=== PATIENT | female | born 1940 | race Caucasian/White ===

== ENCOUNTER 2024-05-07 13:51 | Outpatient (RCR) | payer MEDICARE, SELFPAY ==
[2024-05-07 14:00] VITALS: BP 184/96
[2024-05-07] MEDS: INJECTAFER 265 MG IV (14:25)
[2024-05-07 15:01] VITALS: BP 149/72
== END 2024-05-08 09:17 | disposition home or self-care (01) ==
LOC: OID 13:51
PROVIDERS: ATTENDING PHYSICIAN Physician Assistant Surgical; FAMILY PHYSICIAN Internal Medicine
DX: D50.9 Iron deficiency anemia, unspecified (principal); M16.0 Bilateral primary osteoarthritis of hip; N18.31 Chronic kidney disease, stage 3a; K51.90 Ulcerative colitis, unspecified, without complications
CPT/HCPCS: 96365; J1439

== ENCOUNTER 2024-05-11 08:38 | Inpatient (IN) | payer MEDICARE, SELFPAY ==
[2024-04-17 13:16] VITALS: BMI 33.9
[2024-04-17 15:16] LABS: % Basophils 0.5 % (0-2); % Eosinophils 4.1 % (0-6); % Immature Granulocytes 0.2 % (0-0.5); % Lymphocytes 15.8 % (20.5-51.1); % Monocytes 10.7 % (1.7-9.3); % Neutrophils 68.7 % (42.2-75.2); Absolute Eosinophils 0.2 10^3/uL (0-0.7); Absolute Lymphocytes 0.9 10^3/uL (1.2-3.4); Absolute Monocytes 0.6 10^3/uL (0.1-0.6); Hematocrit 32.4 % (37.0-47.0); Mean Corp Hgb Conc. 30.9 g/dL (33.0-37.0); Mean Corpuscular Hgb 22.8 pg (27.0-31.0); Mean Corpuscular Volume 73.8 fL (81.0-99.0); Mean Platelet Volume 11.5 fL (7.4-10.4); Nucleated Red Blood Cells % 0 %; Platelet Count 207 10^3/uL (130-400); Red Blood Cell Count 4.39 10^6/uL (4.20-5.40); Red Cell Dist. Width 17.6 % (11.5-14.5); White Blood Cell Count 5.9 10^3/uL (4.8-10.8)
[2024-04-17 15:23] LABS: ALT (SGPT) 21 U/L (0-35); AST (SGOT) 33 U/L (14-36); Albumin 4.2 g/dl (3.5-5.0); Alkaline Phosphatase 210 U/L (38-126); Blood Urea Nitrogen 17 mg/dl (7-17); Calcium 10.7 mg/dl (8.4-10.2); Carbon Dioxide 19 mmol/L (22-30); Chloride 104 mmol/L (98-107); Estimated Creatinine Clearance 40 ml/min; Glucose 93 mg/dl (70-99); Iron 27 ug/dl (37-170); Potassium 4.8 mmol/L (3.5-5.1); Sodium 137 mmol/L (135-145); Total Bilirubin 1.2 mg/dl (0.2-1.3); Total Protein 6.6 g/dl (6.3-8.2); eGFR 56.25
[2024-04-17 15:32] LABS: Percent Saturation 5 % (20-50); Total Iron Binding Capacity 492 ug/dl (265-497)
[2024-04-17 15:57] LABS: Ferritin 7.1 ng/ml (11.1-264.0)
[2024-04-17 16:28] LABS: Folate 3.3 ng/ml (2.76-20); Vitamin B12 285 pg/ml (239-931)
[2024-04-18 08:48] LABS: Glycohemoglobin (HgbA1c) 5.4 % (4.0-5.6)
[2024-05-11] VITALS (13 sets, daily range): BP systolic 107–153; BP diastolic 49–83; PULSE 71–80; O2SAT 95–100
[2024-05-11] MEDS: CELEBREX 200 MG PO (09:44)
[2024-05-11] MEDS: NORMOSOL-R/PLASMALYTE-A 1000 IV (09:44)
[2024-05-11] MEDS: TYLENOL 650 MG PO ×2 (09:44→21:28)
[2024-05-11 09:47] LABS: Hematocrit 30.8 % (37.0-47.0); Hemoglobin 9.5 g/dL (12.0-16.0); Mean Corp Hgb Conc. 30.8 g/dL (33.0-37.0); Mean Corpuscular Hgb 22.5 pg (27.0-31.0); Mean Corpuscular Volume 72.8 fL (81.0-99.0); Mean Platelet Volume 10.9 fL (7.4-10.4); Platelet Count 197 10^3/uL (130-400); Red Blood Cell Count 4.23 10^6/uL (4.20-5.40); Red Cell Dist. Width 18.5 % (11.5-14.5); White Blood Cell Count 5.7 10^3/uL (4.8-10.8)
[2024-05-11] MEDS: SUBLIMAZE 25 MCG IV ×2 (13:10→13:29)
[2024-05-11] MEDS: FERRLECIT 110 MG IV (13:53)
[2024-05-11] MEDS: ROXICODONE 5 MG PO (14:01)
--- NOTE | 2024-05-11 14:09 | W.PN.ORTHO ---
Today's Communication / Plan
-
D/c when clinically stable.
Assessment
.
Distal Motor Intact: Yes
Dressing:
Clean, dry and intact.
Assessment:
L hip OA s/p L ROSARIO w/ Dr Gray 05/11/24
DVT prophylaxis - ASA, b/l venous foot pumps
L hip 'burning' pain - add Gabapentin - monitor
HTN - + parameters - monitor BP
Chronic RODRIGUEZ - monitor O2
- IS
CKD stage 3 - minimize nephrotoxins
Ulcerative colitis, with history of total proctocolectomy with permanent�ileostomy - no Meloxicam/Celebrex
- Per pt preference, will start Colace BID w/ Senna BIDPRN
Liver fibrosis w/ chronically elevated LFTs - reduce max dose of Tylenol daily
Iron deficiency anemia � received Injectafer x1 pre-op - hgb 9.5 05/11/24
- IV iron during admission (clarified w/ pharmacy its OK w/ recent Injectafer 05/07)
- H&H in AM
L groin small open cyst - will Rx prophylactic Cefadroxil upon d/c
Celiac disease
Mixed irritable bowel syndrome.�����
Hypothyroidism
Osteoporosis
Lymphedema
Plan
.
Surgery / Date: Alexx PONCE w/ Dr Gray 05/11/24
DVT Prophylaxis: Aspirin
Activity:
Out of bed.
PT/OT
Discharge Plan: Home w/ Outpatient PT
Subjective
.
.:
Patient resting comfortably in PACU.
L hip 'burning' pain resolving upon assessment.
Denies any other new complaints.
Vital Signs and Labs
.
Vital Signs and Labs:
Lab Results
04/17/24 13:49
Temp Pulse Resp BP Pulse Ox
97.9 F 81 20 152/78 98
05/11/24 09:15 05/11/24 09:15 05/11/24 09:15 05/11/24 09:15 05/11/24 09:15
Physical Exam
-
HEENT: No pallor, cyanosis, or jaundice. Throat clear.
NECK: Supple. No JVD.
RESPIRATORY: Lungs clear to auscultation.
CVS: S1, S2 normal. RRR.�
ABDOMEN: Soft, non-tender. No distension. Obese. Ileostomy.
EXTREMITIES: Lymphedema noted. Strength equal, no calf pain with palpation/dorsiflexion. Calves soft.
SOLDERER: AOx3. No focal deficits. nursery worker grossly intact
--- NOTE | 2024-05-11 14:31 | PTCARENOTE ---
Pt arrived to [facility] from PACU s/p L THR. Pt AAOx3, NV intact. L Hip dressing C/D/I. Iron infusion started in PACU, currently infusing. Pt states mild pain at this time. Pt oriented to call pollock and room, bed locked and in lowest position.
[2024-05-11] MEDS: TYLENOL PO (15:01)
[2024-05-11] MEDS: NSS 1000 IV (15:16)
[2024-05-11] MEDS: NEURONTIN 100 MG PO ×2 (15:17→21:28)
[2024-05-11] MEDS: SYNTHROID 175 MCG PO (15:17)
[2024-05-11] MEDS: TOPROL XL 50 MG PO (15:18)
[2024-05-11] MEDS: DILAUDID 0.5 MG IV (15:21)
[2024-05-11] MEDS: ANCEF 5 IV (17:15)
[2024-05-11] MEDS: ASPIRIN 325 MG PO (17:15)
[2024-05-11] MEDS: ZOFRAN 4 MG IV (19:30)
[2024-05-11] MEDS: BACTROBAN 2% OINTMENT 1 APPLIC NASAL (21:28)
[2024-05-11] MEDS: DECADRON 4 MG PO (21:28)
[2024-05-11] MEDS: COLACE 100 MG PO (21:29)
[2024-05-11] MEDS: ROXICODONE 10 MG PO (21:49)
[2024-05-12] MEDS: ANCEF 5 IV (02:09)
[2024-05-12] MEDS: ROXICODONE 5 MG PO (02:09)
[2024-05-12 03:05] VITALS: BP 131/69
[2024-05-12] MEDS: SYNTHROID 175 MCG PO (05:04)
[2024-05-12] MEDS: TYLENOL 650 MG PO ×2 (05:04→12:08)
[2024-05-12] MEDS: ROXICODONE 2.5 MG PO (06:21)
[2024-05-12 06:43] LABS: Hematocrit 27.2 % (37.0-47.0); Hemoglobin 8.5 g/dL (12.0-16.0)
[2024-05-12 07:46] VITALS: BP 112/72
[2024-05-12] MEDS: ASPIRIN 325 MG PO (08:05)
[2024-05-12] MEDS: COLACE 100 MG PO (08:05)
[2024-05-12] MEDS: DECADRON 4 MG PO (08:05)
[2024-05-12] MEDS: BACTROBAN 2% OINTMENT 1 APPLIC NASAL (08:05)
[2024-05-12] MEDS: NEURONTIN 100 MG PO (08:05)
[2024-05-12] MEDS: TOPROL XL 50 MG PO (08:06)
[2024-05-12 09:03] VITALS: BP 114/70; BP 150/72; PULSE 102; O2SAT 94
--- NOTE | 2024-05-12 10:22 | W.PN.ORTHO ---
Today's Communication / Plan
-
Await PT recs. Pt did well w/ OT this AM.
D/c later today if remaining clinically stable.
Assessment
.
Distal Motor Intact: Yes
Dressing:
Clean, dry and intact.
Assessment:
L hip OA s/p L ROSARIO w/ Dr Grya 05/11/24
DVT prophylaxis - ASA, b/l venous foot pumps
L hip 'burning' pain - better controlled w/ addition of Gabapentin
HTN - + parameters - BPs overall stable
Chronic RODRIGUEZ - O2 stable on RA
- IS
CKD stage 3 - continue to minimize nephrotoxins
Ulcerative colitis, with history of total proctocolectomy with permanent�ileostomy - no Meloxicam/Celebrex
- Per pt preference, will start Colace BID w/ Senna BIDPRN
Liver fibrosis w/ chronically elevated LFTs - reduce max dose of Tylenol daily
Iron deficiency anemia � received Injectafer x1 pre-op - hgb 9.5 05/11/24 -> 8.5 POD 1
- IV iron during admission (clarified w/ pharmacy its OK w/ recent Injectafer 05/07)
- Will suggest PO iron daily upon d/c
- CBC outpatient w/ results to PCP for f/u mgmt
L groin small open cyst - will Rx prophylactic Cefadroxil upon d/c
Celiac disease
Mixed irritable bowel syndrome.�����
Hypothyroidism
Osteoporosis
Lymphedema
Plan
.
Surgery / Date: Alexx PONCE w/ Dr Gray 05/11/24
DVT Prophylaxis: Aspirin
Activity:
Out of bed.
PT/OT
Discharge Plan: Home w/ Outpatient PT
Subjective
.
.:
Patient resting comfortably in her chair this AM.
L hip pain well controlled w/ current pain meds.
Denies any new significant complaints.
Eager for potential d/c today.
Vital Signs and Labs
.
Vital Signs and Labs:
Lab Results
05/12/24 04:28
04/17/24 13:49
Temp Pulse Resp BP Pulse Ox
98.4 F 93 16 112/72 92
05/12/24 07:46 05/12/24 08:06 05/12/24 07:46 05/12/24 08:06 05/12/24 07:46
Physical Exam
-
HEENT: No pallor, cyanosis, or jaundice. Throat clear.
NECK: Supple. No JVD.
RESPIRATORY: Lungs clear to auscultation.
CVS: S1, S2 normal. RRR.�
ABDOMEN: Soft, non-tender. No distension. Obese.
EXTREMITIES: Strength equal, no calf pain with palpation/dorsiflexion. Calves soft.
HUMAN RESOURCES PROJECT COORDINATOR: AOx3. No focal deficits. flight surveyor grossly intact
--- NOTE | 2024-05-12 10:48 | W.DS.TRANS ---
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
-
Discharge Instructions:
Discharge Diagnosis/Procedures L hip OA s/p L ROSARIO w/ Dr Gray 05/11/24
Diet Regular
Activity As tolerated,With Walker
Driving Restrictions Not until seen by your Dr
Bathing Restrictions OK to Shower
Blood Work CBC without diff on 05/15/24, with
results to primary care for further anemia
management.
Other Services PT
Wound Care Dressing to be removed 1 week post-surgery.
Instructions:
Stand-Alone Forms: Total Hip/Knee Replacement D/C
Changes to Home Medications: Yes
Discharge Medications:
DC Medications w/original date entered in [employer]
levothyroxine 175 mcg tablet 175 mcg PO DAILY Thyroid 04/03/18
metoprolol succinate 25 mg tablet,extended release 24 hr (Toprol XL) 50 mg PO DAILY Blood pressure 04/18/21
diphenhydramine HCl 50 mg/30 mL oral liquid 50 mg PO HS PRN insomnia 05/05/24
ergocalciferol (vitamin D2) 1,250 mcg (50,000 unit) capsule (Vitamin D2) 1,250 mcg PO QWEEK Supplement 05/05/24
mupirocin 2 % topical ointment 1 applic topical BID 05/05/24
Saccharomyces boulardii 250 mg capsule (Florastor) 250 mg PO DAILY #7 caps 05/12/24
acetaminophen 325 mg tablet 650 mg (2 x 325 mg) PO Q8H #30 tabs 05/12/24
aspirin 325 mg tablet 325 mg PO DAILY #30 tabs 05/12/24
cefadroxil 500 mg capsule 500 mg PO DAILY #7 caps 05/12/24
dexamethasone 4 mg tablet 4 mg PO Q12H Anti-inflammatory #7 tabs 05/12/24
docusate sodium 100 mg capsule 100 mg PO BID #30 caps 05/12/24
ferrous sulfate 325 mg (65 mg iron) tablet 325 mg PO DAILY #30 tabs 05/12/24
gabapentin 100 mg capsule 100 mg PO TID neuropathic pain #30 caps 05/12/24
ondansetron HCl 4 mg tablet 4 mg PO Q6H PRN nausea and vomiting #30 tabs 05/12/24
oxycodone 5 mg tablet 5 - 10 mg (1 - 2 x 5 mg) PO Q6H PRN moderate-severe pain #30 tabs 05/12/24
sennosides 8.6 mg tablet (Senna Laxative) 17.2 mg (2 x 8.6 mg) PO BIDPRN PRN constipation #30 tabs 05/12/24
Home Medication Changes
Saccharomyces boulardii 250 mg capsule (Florastor) 250 mg PO DAILY #7 caps 05/12/24
acetaminophen 325 mg tablet 650 mg (2 x 325 mg) PO Q8H #30 tabs 05/12/24
aspirin 325 mg tablet 325 mg PO DAILY #30 tabs 05/12/24
cefadroxil 500 mg capsule 500 mg PO DAILY #7 caps 05/12/24
dexamethasone 4 mg tablet 4 mg PO Q12H Anti-inflammatory #7 tabs 05/12/24
docusate sodium 100 mg capsule 100 mg PO BID #30 caps 05/12/24
ferrous sulfate 325 mg (65 mg iron) tablet 325 mg PO DAILY #30 tabs 05/12/24
gabapentin 100 mg capsule 100 mg PO TID neuropathic pain #30 caps 05/12/24
ondansetron HCl 4 mg tablet 4 mg PO Q6H PRN nausea and vomiting #30 tabs 05/12/24
oxycodone 5 mg tablet 5 - 10 mg (1 - 2 x 5 mg) PO Q6H PRN moderate-severe pain #30 tabs 05/12/24
sennosides 8.6 mg tablet (Senna Laxative) 17.2 mg (2 x 8.6 mg) PO BIDPRN PRN constipation #30 tabs 05/12/24
Pending Results: No
--- NOTE | 2024-05-12 11:00 | CM ---
Met with pt at bedside
Pt reports she lives at [facility] [employer], in a [facility] apt with her ; FF set-up, elevator access, no steps to enter
Active prior to admission, independent with ADL's
DME - Rolling walker, single point cane, commode, raised toilet seat, hip kit
SNF - denies past hx
HH - has had in past - unable to recall agency
Has ride home with her
PCP - Braeden Moore
Pharm - [facility]
Has appt scheduled for outpatient PT at [facility] (sees specialist at that location for her lymphedema)
Has Rx for therapy
Discussed IMM
Plan - anticipate home with outpatient therapy
[2024-05-12 11:17] VITALS: BP 105/59; BP 105/69; PULSE 78; O2SAT 94
[2024-05-12] MEDS: ZOFRAN 4 MG IV (12:09)
== END 2024-05-12 13:35 | disposition home or self-care (01) | DRG 470 ==
LOC: 2 SOUTH 08:38
PROVIDERS: Physician Assistant; ADMITTING PHYSICIAN Specialist; FAMILY PHYSICIAN Internal Medicine; REFERRING PHYSICIAN Internal Medicine Interventional Cardiology
PROC: 0SRB0JZ Replacement of Left Hip Joint with Synthetic Substitute, Open Approach (ICD-10-PCS; 2024-05-11)
DX: M16.12 Unilateral primary osteoarthritis, left hip (principal); K51.90 Ulcerative colitis, unspecified, without complications; E03.9 Hypothyroidism, unspecified; E66.9 Obesity, unspecified; I12.9 Hypertensive chronic kidney disease with stage 1 through stage 4 chronic kidney disease, or unspecified chronic kidney disease; N18.31 Chronic kidney disease, stage 3a; M81.0 Age-related osteoporosis without current pathological fracture; D50.9 Iron deficiency anemia, unspecified; K74.00 Hepatic fibrosis, unspecified; Z68.33 Body mass index [BMI] 33.0-33.9, adult
CPT/HCPCS: 36415; 73502; 80053; 82607; 82728; 82746; 83036; 83540; 83550; 85014; 85018; 85025; 85027; 86850; 86900; 86901; 87070; 97110; 97116; 97162; 97167; 97530; 97535; C1713; C1776; J2916

== ENCOUNTER 2024-05-23 13:58 | Emergency (ER) | payer MEDICARE, SELFPAY ==
[2024-05-23 14:01] VITALS: BP 136/59
--- NOTE | 2024-05-23 14:54 | ED.GENMED ---
History of Present Illness
General
Chief Complaint: Swelling
Source: patient
Exam Limitations: none
Time Seen by Provider: 05/23/24 14:44
Nursing documentation reviewed up to this point in time: agreed with
History of Present Illness
History of Present Illness:
83-year-old female with history of HTN, lymphedema, ileostomy, CKD, hypothyroid, hidradenitis with skin grafts, anemia, impaired vision, bilateral hearing aids, L hip replacement 05/11/24 Dr. Gray, is here for left LE swelling. States had some
leg swelling post op but it has gotten much worse in past week and now includes ankle and foot.
Has been doing P/T twice weekly, since 05/12, last P/T was 2 days ago.
Spoke with Dr. Gray LITHOGRAPHIC ARTIST one week ago and was told to put compression stocking on but the one she has is 'too loose.'
States pain in hip is improving but now her ankle and foot are 5/10 pain at rest and cannot walk due to pain.
Denies Fever/chills. Denies CP, SOB.
Past History
Past History
ED Past Medical History: HTN, Hypothyroidism, Other (Lymphedema) and Other (Anemia, irritable bowel, Perforated diverticulitis, ulcerative colitis, celiac disease, hidradenitis status post radiation therapy )
ED Past Surgical History: Appendectomy, Cholecystectomy, Gynecological (Left falopian tube removed), Orthopedic (L hip replaced 05/11/24), Tonsilectomy and Other (Total Proctocolectomy with Ileostomy, numerous skin grafts)
Social History
Tobacco: Non-smoker
Alcohol: Daily (Adele 1-2 glasses)
Drug: None
Personal:
Living: with family
Employment: Not employed
Family History
Family History: Other (Noncontributory)
Review of Systems
Review of Systems
Allergies reviewed?: Yes
All Other Systems: ROS reviewed and negative except as documented in HPI and ROS
Constitutional: Denies fever or chills
Respiratory: Denies trouble breathing
Cardiac: Denies chest pain
ABD/GI: Denies abdominal pain, nausea, diarrhea, constipated or anorexia
: Denies dysuria, frequency or difficulty voiding
Musculoskeletal: Reports other (Left hip w boyd post op, improving, still oozing a little fluid at times. LLE swelling much worse than her typical lymphedema, painful.)
Skin: Reports other (redness, warmth LLE)
Phy Exam
Physical Exam
Physical Exam:
GENERAL: No acute distress. A&Ox3.
CONSTITUTIONAL: Afebrile.
EYES: clear, conjunctivae normal
ENMT: moist mucus membranes
RESPIRATORY: Regular respirations, nonlabored, lungs clear.
CARDIOVASCULAR: Regular rate and rhythm, no murmurs, no rubs.
GI: Soft, nontender, normal BS. Ileostomy patent.
MUSCULOSKELETAL: LLE with +3 edema from knee to and including toes, erythematous and warm. Foot warm, sensation intact, moves toes. Unable to palpate pulses due to swelling. Well perfused.
SKIN: Warm, dry, pink
PSYCH: Normal mood and affect. Well kept, interactive and appropriate
NEUROLOGIC: Awake, alert and oriented. No focal neurological deficits
Scores
Heart Failure Risk
Heart Failure Risk Score: Not Applicable
Course
Orders/Labs/Results
Orders:
Orders
05/23/24 15:06
US Periph Venous LOWER Ext LT Urgent
Comment:
Reason For Exam: swelling, pain 2 weeks post hip replacement
05/23/24 15:37
Complete Blood Count/With Diff Urgent
Comprehensive Metabolic Panel Urgent
05/23/24 17:12
Tramadol HCl [Ultram] 50 mg PO NOW STA
05/23/24 17:20
Tramadol HCl [Ultram] 25 mg PO NOW STA
Abnormal Lab Results
05/23/24
15:37
RBC 3.58 L 10^6/uL
(4.20-5.40)
Hgb 9.3 L g/dL
(12.0-16.0)
Hct 29.4 L %
(37.0-47.0)
MCH 26.0 L pg
(27.0-31.0)
MCHC 31.6 L g/dL
(33.0-37.0)
RDW 26.3 H %
(11.5-14.5)
Abs Immat Gran (auto) 0.1 H 10^3/uL
(0-0.05)
Absolute Lymphs (auto) 0.6 L 10^3/uL
(1.2-3.4)
Immature Gran % 0.8 H %
(0-0.5)
Neutrophils % 78.1 H %
(42.2-75.2)
Lymphocytes % 9.6 L %
(20.5-51.1)
Monocytes % 9.5 H %
(1.7-9.3)
Sodium 134 L mmol/L
(135-145)
Carbon Dioxide 18 L mmol/L
(22-30)
Alkaline Phosphatase 182 H U/L
(38-126)
Total Protein 5.8 L g/dl
(6.3-8.2)
Albumin 3.3 L g/dl
(3.5-5.0)
05/23/24 15:37
05/23/24 15:37
Vital Signs
Initial and Last Documented VS:
Initial Vital Signs
Temp Pulse Resp BP Pulse Ox
97.5 F 63 18 136/59 100
05/23/24 14:01 05/23/24 14:01 05/23/24 14:01 05/23/24 14:01 05/23/24 14:01
Last Documented Vital Signs
Temp Pulse Resp BP Pulse Ox
97.5 F 69 17 145/54 99
05/23/24 14:01 05/23/24 17:23 05/23/24 17:23 05/23/24 17:23 05/23/24 17:23
Rn Admission consulted with Physician
Rn Admission consulted with physician?: Yes
Name of Physician Consulted: Noh
MDM/Problems Addressed
Differential Diagnosis Includes:
CVT, Cellulitis, dependent edema
MDM/Problems Addressed:
83-year-old female with history of HTN, lymphedema, ileostomy, CKD, hypothyroid, hidradenitis with skin grafts, anemia, impaired vision, bilateral hearing aids, L hip replacement 05/11/24 Dr. Gray, is here for left LE swelling. States had some
leg swelling post op but it has gotten much worse in past week and now includes ankle and foot.
Has been doing P/T twice weekly, since 05/12, last P/T was 2 days ago.
Spoke with Dr. Gray LITHOGRAPHIC ARTIST one week ago and was told to put compression stocking on but the one she has is 'too loose.' Besides the compression stocking, she can use the ra wraps and 'all that stuff' at home for LE swelling.
States pain in hip is improving but now her ankle and foot are 5/10 pain at rest and cannot walk due to pain.
Denies Fever/chills. Denies CP, SOB.
4:30 p.m.
CBC: No clinically significant abnormality
CMP: No clinically significant abnormality, similar to previous
4:15 p.m.
US neg for DVT.
Most likely dependent edema on top of her chronic lymphedema. No indication of infection.
Pt requests something stronger that Tylenol for pain but not as strong as the oxycodone she was taking. She has appt in 2 days with ortho so will give small regimen of Tramadol as kidney functions are fine and no interactions with her other meds
found.
Tramadol 25 mg #7 tabs sent to her pharmacy.
and pt appreciative of the care and are comfortable going home with this plan.
*Critical Care Note
Total Time (30-74mins, 75-104mins- exclusive of procedures): Not Applicable
ED Attending Note
-
Portions of this chart may have been created with voice recognition software.� Occasional wrong word or��sound alike� substitutions may have occurred due to the inherent limitations of voice recognition software.
Discharge Plan
Departure
Patient Disposition: Home (Routine Discharge)
Date of Disposition: 05/23/24
Time of Disposition: 17:13
Patient with high blood pressure during this ER visit?: No
Condition: Fair
Discharge Problem:
Edema of left lower leg, Dependent edema
Instructions: Dependent Edema (DC), Swelling
Prescriptions:
New
tramadol 25 mg tablet
25 mg PO Q6H PRN (Reason: Pain) Qty: 7 0RF
No Action
levothyroxine 175 MCG tablet
175 mcg PO DAILY
metoprolol succinate [Toprol XL] 25 MG tablet extended release 24 hr
50 mg PO DAILY
ergocalciferol (vitamin D2) [Vitamin D2] 1,250 mcg (50,000 unit) Capsule
1,250 mcg PO QWEEK
diphenhydramine HCl 50 mg/30 mL Liquid
50 mg PO HS PRN (Reason: insomnia)
mupirocin 2 % Ointment
1 applic TOPICAL BID
aspirin 325 mg Tablet
325 mg PO DAILY Qty: 30 0RF
Rx Instructions:
Take daily x4 weeks for blood clot prevention.
docusate sodium 100 mg Capsule
100 mg PO BID Qty: 30 0RF
dexamethasone 4 mg Tablet
4 mg PO Q12H Qty: 7 0RF
Rx Instructions:
Restart night of discharge and continue every 12 hours until finished.
Take with food.
gabapentin 100 mg Capsule
100 mg PO TID Qty: 30 0RF
oxycodone 5 mg Tablet
5 - 10 mg PO Q6H PRN (Reason: moderate-severe pain) Qty: 30 0RF
Rx Instructions:
1 tab for moderate pain, 2 if severe.
Dx total joint.
sennosides [Senna Laxative] 8.6 mg Tablet
17.2 mg PO BIDPRN PRN (Reason: constipation) Qty: 30 0RF
acetaminophen 325 mg Tablet
650 mg PO Q8H Qty: 30 0RF
Rx Instructions:
DO NOT exceed >2000 mg daily.
ondansetron HCl 4 mg tablet
4 mg PO Q6H PRN (Reason: nausea and vomiting) Qty: 30 0RF
Rx Instructions:
Prescribed by surgeon's office pre-op.
cefadroxil 500 mg capsule
500 mg PO DAILY Qty: 7 0RF
Saccharomyces boulardii [Florastor] 250 mg capsule
250 mg PO DAILY Qty: 7 0RF
Rx Instructions:
Over the counter. Take while on antibiotic.
If unavailable, choose a different probiotic.
ferrous sulfate 325 mg (65 mg iron) tablet
325 mg PO DAILY Qty: 30 0RF
Rx Instructions:
Over the counter.
Referrals:
Finn Gray MD [Active] - Keep scheduled appt
Braeden Moore MD [Family Provider] -
Activity Restrictions/Additional Instructions:
As we discussed, Ultrasound shows no clots.
keep your appointment in [address] Desir's PA in 2 days.
Tylenol 1000 mg daily for mild to moderate pain and use the Tramadol as needed for worse pain
If you need something more for pain, you need to discuss this with the orthopedic PA/doctor Saturday.
Use your walker and move around as much as you comfortably can as this can help the swelling
Use your ra wraps as you have in the past for swelling
Elevate leg to level of hip as much as possible when you are resting to minimize swelling
Interventions
Interventions:
*Risk Screen - Suicide Last Done: 05/23/24 14:01
*General Assessment Last Done: 05/23/24 14:01
*Neglect/Abuse Screening Last Done: 05/23/24 14:01
*ED COVID-19 Vaccine History Last Done: 05/23/24 16:58
*Nursing Disposition Last Done: 05/23/24 18:00
ED- Cardiac Assessment Last Done: 05/23/24 14:35
ED-Musculoskeletal Assessment Last Done: 05/23/24 14:35
ED- Pulmonary Assessment Last Done: 05/23/24 14:35
ED-Skin Assessment Last Done: 05/23/24 14:35
Discharge Date and Time
Discharge Date/Time: 05/23/24 18:01
Print Language: SYRIAN
[2024-05-23 15:44] LABS: % Basophils 0.3 % (0-2); % Eosinophils 1.7 % (0-6); % Immature Granulocytes 0.8 % (0-0.5); % Lymphocytes 9.6 % (20.5-51.1); % Monocytes 9.5 % (1.7-9.3); % Neutrophils 78.1 % (42.2-75.2); Absolute Eosinophils 0.1 10^3/uL (0-0.7); Absolute Immature Granulocytes 0.1 10^3/uL (0-0.05); Absolute Lymphocytes 0.6 10^3/uL (1.2-3.4); Absolute Monocytes 0.6 10^3/uL (0.1-0.6); Hematocrit 29.4 % (37.0-47.0); Hemoglobin 9.3 g/dL (12.0-16.0); Mean Corp Hgb Conc. 31.6 g/dL (33.0-37.0); Mean Corpuscular Volume 82.1 fL (81.0-99.0); Mean Platelet Volume 10.4 fL (7.4-10.4); Nucleated Red Blood Cells % 0 %; Platelet Count 177 10^3/uL (130-400); Red Blood Cell Count 3.58 10^6/uL (4.20-5.40); Red Cell Dist. Width 26.3 % (11.5-14.5); White Blood Cell Count 6.3 10^3/uL (4.8-10.8)
[2024-05-23 16:11] LABS: ALT (SGPT) 23 U/L (0-35); AST (SGOT) 26 U/L (14-36); Albumin 3.3 g/dl (3.5-5.0); Alkaline Phosphatase 182 U/L (38-126); Blood Urea Nitrogen 13 mg/dl (7-17); Calcium 9.6 mg/dl (8.4-10.2); Carbon Dioxide 18 mmol/L (22-30); Chloride 105 mmol/L (98-107); Glucose 99 mg/dl (70-99); Sodium 134 mmol/L (135-145); Total Bilirubin 1.1 mg/dl (0.2-1.3); Total Protein 5.8 g/dl (6.3-8.2); eGFR 56.25
[2024-05-23 17:23] VITALS: BP 145/54
[2024-05-23] MEDS: ULTRAM 25 MG PO (17:27)
== END 2024-05-23 18:01 | disposition home or self-care (01) ==
LOC: EMR 13:58
PROVIDERS: Registered Nurse; EMERGENCY PHYSICIAN Emergency Medicine; FAMILY PHYSICIAN Internal Medicine
DX: R60.0 Localized edema (principal); M79.605 Pain in left leg; R26.2 Difficulty in walking, not elsewhere classified; I12.9 Hypertensive chronic kidney disease with stage 1 through stage 4 chronic kidney disease, or unspecified chronic kidney disease; N18.9 Chronic kidney disease, unspecified; E03.9 Hypothyroidism, unspecified; D63.1 Anemia in chronic kidney disease; I89.0 Lymphedema, not elsewhere classified; K90.0 Celiac disease; K58.9 Irritable bowel syndrome, unspecified; K51.90 Ulcerative colitis, unspecified, without complications; K52.9 Noninfective gastroenteritis and colitis, unspecified; M19.90 Unspecified osteoarthritis, unspecified site; M47.816 Spondylosis without myelopathy or radiculopathy, lumbar region; Z98.890 Other specified postprocedural states; Z90.49 Acquired absence of other specified parts of digestive tract; Z96.642 Presence of left artificial hip joint; Z92.3 Personal history of irradiation; Z79.82 Long term (current) use of aspirin; Z88.1 Allergy status to other antibiotic agents; Z91.018 Allergy to other foods; Z91.048 Other nonmedicinal substance allergy status
CPT/HCPCS: 99284; 80053; 85025; 93971

== ENCOUNTER → 2024-05-25 12:10 | Outpatient (REF) | payer MEDICARE, SELFPAY ==
[2024-05-25 13:15] LABS: % Basophils 0.5 % (0-2); % Eosinophils 1.2 % (0-6); % Immature Granulocytes 0.5 % (0-0.5); % Lymphocytes 8.6 % (20.5-51.1); % Monocytes 6.3 % (1.7-9.3); % Neutrophils 82.9 % (42.2-75.2); Absolute Eosinophils 0.1 10^3/uL (0-0.7); Absolute Lymphocytes 0.6 10^3/uL (1.2-3.4); Absolute Monocytes 0.5 10^3/uL (0.1-0.6); Absolute Neutrophils 6.2 10^3/uL (1.4-6.5); Hematocrit 32.1 % (37.0-47.0); Hemoglobin 9.9 g/dL (12.0-16.0); Mean Corp Hgb Conc. 30.8 g/dL (33.0-37.0); Mean Corpuscular Hgb 25.8 pg (27.0-31.0); Mean Corpuscular Volume 83.6 fL (81.0-99.0); Mean Platelet Volume 11.2 fL (7.4-10.4); Nucleated Red Blood Cells % 0 %; Platelet Count 230 10^3/uL (130-400); Red Blood Cell Count 3.84 10^6/uL (4.20-5.40); Red Cell Dist. Width 27.5 % (11.5-14.5); White Blood Cell Count 7.4 10^3/uL (4.8-10.8)
[2024-05-25 13:53] LABS: Erythrocyte Sed Rate 31 mm/hour (0-20)
[2024-05-25 14:02] LABS: Anisocytosis 1+; Hypochromasia 1+; Normal RBC Morphology No; Ovalocytes Slight; Polychromasia Slight
== END ==
LOC: REG 12:10
PROVIDERS: ATTENDING PHYSICIAN Physician Assistant Surgical; FAMILY PHYSICIAN Internal Medicine
DX: Z96.642 Presence of left artificial hip joint (principal)
CPT/HCPCS: 36415; 85025; 85652; 86140

== ENCOUNTER 2024-07-17 23:38 | Inpatient (IN) | payer MEDICARE, SELFPAY ==
[2024-07-17 18:15] VITALS: BP 143/65
[2024-07-17 18:48] LABS: % Basophils 0.5 % (0-2); % Eosinophils 1.9 % (0-6); % Immature Granulocytes 0.7 % (0-0.5); % Lymphocytes 14.2 % (20.5-51.1); % Monocytes 10.5 % (1.7-9.3); % Neutrophils 72.2 % (42.2-75.2); Absolute Eosinophils 0.2 10^3/uL (0-0.7); Absolute Immature Granulocytes 0.1 10^3/uL (0-0.05); Absolute Lymphocytes 1.2 10^3/uL (1.2-3.4); Absolute Monocytes 0.9 10^3/uL (0.1-0.6); Hematocrit 45.7 % (37.0-47.0); Mean Corp Hgb Conc. 32.8 g/dL (33.0-37.0); Mean Corpuscular Volume 88.4 fL (81.0-99.0); Mean Platelet Volume 10.6 fL (7.4-10.4); Nucleated Red Blood Cells % 0 %; Platelet Count 221 10^3/uL (130-400); Red Blood Cell Count 5.17 10^6/uL (4.20-5.40); Red Cell Dist. Width 20.6 % (11.5-14.5); White Blood Cell Count 8.3 10^3/uL (4.8-10.8)
[2024-07-17 18:50] LABS: Urine Albumin Trace (Neg - Trace); Urine Bilirubin Negative (Negative); Urine Character Clear (Clear); Urine Color Yellow; Urine Glucose Negative (Negative); Urine Ketone Negative (Negative); Urine Leukocyte 2+ (Negative); Urine Nitrite Negative (Negative); Urine Occult Blood Negative (Negative); Urine Specific Gravity 1.015 (<1.030); Urine Urobilinogen Negative (Neg - 1+)
[2024-07-17 19:00] LABS: Urine Bacteria Few (Negative); Urine Red Blood Cell 0-2 /HPF (0-2); Urine White Cell 50-60 /HPF (0-5)
[2024-07-17 19:14] LABS: ALT (SGPT) 56 U/L (0-35); AST (SGOT) 48 U/L (14-36); Albumin 4.3 g/dl (3.5-5.0); Alkaline Phosphatase 266 U/L (38-126); Blood Urea Nitrogen 42 mg/dl (7-17); Calcium 10.3 mg/dl (8.4-10.2); Carbon Dioxide 11 mmol/L (22-30); Chloride 101 mmol/L (98-107); Glucose 118 mg/dl (70-99); Potassium 4.1 mmol/L (3.5-5.1); Sodium 130 mmol/L (135-145); Total Protein 7.2 g/dl (6.3-8.2); eGFR 21.84
--- NOTE | 2024-07-17 20:49 | ED.GENMED ---
ED Provider Triage
-
Patient seen by provider in Triage?: Seen in Triage
Attestation: A medical screening examination has been initiated by a qualified medical provider. Based on the assessment performed at this time, it has been determined that an emergent medical condition may exist and the patient has been informed
that further medical evaluation and possible additional diagnostic testing may be needed.
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 presents w minimal urination in past 3 days along with increased liquid drainage in her colostomy bag over the last 1-2 weeks. Has
'pressure' suprapubic.
Bladder scan in triage: minimal urine in bladder
GENERAL: Alert , in no apparent distress
EYE: No visual abnormalities.
NECK: Trachea midline
ENT: No visible abnormalities.
LUNGS: No acute respiratory distress
NEUROLOGICAL: Alert and oriented
SKIN: Skin intact. No visible changes.
MUSCULOSKELETAL: Moving extremities normally
PSYCH: Normal and appropriate interaction.
This is a medical evaluation conducted in person to initiate diagnostic evaluation and provide initial therapeutics. Please see further documentation by the treating clinician.
History of Present Illness
General
Chief Complaint: Urinary Symptoms
Source: patient
Exam Limitations: none
Time Seen by Provider: 07/17/24 21:28
Nursing documentation reviewed up to this point in time: agreed with
History of Present Illness
History of Present Illness:
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 presents w minimal urination in past 3 days along with increased liquid drainage in her colostomy bag over the last 1-2 weeks. Has 'pressure'
suprapubic.
Bladder scan in triage: minimal urine in bladder
Past History
Past History
ED Past Medical History: HTN, Hypothyroidism, Other (Lymphedema) and Other (Anemia, irritable bowel, Perforated diverticulitis, ulcerative colitis, celiac disease, hidradenitis status post radiation therapy )
ED Past Surgical History: Appendectomy, Cholecystectomy, Gynecological (Left falopian tube removed), Orthopedic (L hip replaced 05/11/24), Tonsilectomy and Other (Total Proctocolectomy with Ileostomy, numerous skin grafts)
Social History
Tobacco: Non-smoker
Alcohol: Daily (Adele 1-2 glasses)
Drug: None
Personal:
Living: with family
Employment: Not employed
Family History
Family History: Other (Noncontributory)
Review of Systems
Review of Systems
Allergies reviewed?: Yes
All Other Systems: ROS reviewed and negative except as documented in HPI and ROS
Constitutional: Denies fever or fatigue
Respiratory: Denies trouble breathing
Cardiac: Denies chest pain
ABD/GI: Reports abdominal pain (Suprapubic 'pressure') and other (Colostomy draining well, seems to be more liquid in it than usual over the past 2 weeks); Denies nausea, vomiting, diarrhea or constipated
: Reports other (States she has not been voiding as much as usual); Denies dysuria, flank pain or incontinence
Musculoskeletal: Reports edema
Skin: Reports no symptoms
Neurological: Reports no symptoms
Phy Exam
Physical Exam
Physical Exam:
GENERAL: No acute distress. A&Ox3.
CONSTITUTIONAL: Afebrile.
EYES: clear, conjunctivae normal
ENMT: moist mucus membranes, Pharynx nl
RESPIRATORY: Regular respirations, nonlabored, lungs clear.
CARDIOVASCULAR: Regular rate and rhythm, no murmurs, no rubs.
GI: Soft, mild suprapubic tenderness, normal BS. colostomy bag intact
MUSCULOSKELETAL: Moves with ease. Well perfused. No edema, compression stockings on
SKIN: Warm, dry, pink
PSYCH: Normal mood and affect. Well kept, interactive and appropriate
NEUROLOGIC: Awake, alert and oriented. No focal neurological deficits
Course
Orders/Labs/Results
Orders:
Orders
07/17/24 18:36
CMP [Comprehensive Metabolic Panel] Urgent
Complete Blood Count/With Diff Urgent
Urinalysis Reflex To Culture Urgent
Date Specimen was Collected: 07/17/24
Time Specimen was Collected: 18:21
Urine Microscopic Reflex Cult Urgent
Urine Culture Urgent
CHANDANA Source: U
Specimen Description:
Date Specimen was Collected: 07/17/24
Time Specimen was Collected: 18:21
07/17/24 20:57
CT Abd/pel Without Iv Or Oral Urgent
Comment:
Reason For Exam: lower abd pain, pressure bladder, no urine on scan
07/17/24 21:33
0.9% Sodium Chloride 1000 ml [Nss] 1,000 ml IV BOLUS
07/17/24 22:14
Fosfomycin [Monurol] 3 gm PO ONCE ONE
07/17/24 22:58
Admit/Transfer Patient As Directed
Co-Sign Provider:
Level of Care: Inpatient admission
Assign to:: Telemetry
Physician / Group: [email or web address]
Diagnosis: UTI, SEBASTIÁN, dehydration,Hi AG Metabolic acidosis, Hyponatremia
Reason for Telemetry: Other
Other Reason for Telemetry: hypotention, electrolyes dysfunction
Date to Stop Telemetry: 07/19/24
Time to Stop Telemetry: 11:00
Reason for Hospitalization: UTI, SEBASTIÁN, dehydration, Hi AG Metabolic acidosis, Hyponatremia
Expected length of stay greater than two midnights?: Yes
ELOS- Estimated Length of Stay in days: 3
I certify the patient meets the requirements for IP care: Yes
07/17/24 23:00
Flush (0.9% Sodium Chloride) [Flush (Nss)] See Dose Instructions IV PER PROTOCOL
07/17/24 23:01
Code Status As Directed
Resuscitation Status: Full Code
12/07/24 00:26
0.9% Sodium Chloride 1000 ml [Nss] 1,000 ml IV 100 mls/hr
Acetaminophen [Tylenol] 650 mg PO Q4HPRN PRN
Bisacodyl [Dulcolax] 10 mg RECTAL [id number] PRN
Docusate W/Senna [Senokot-S] 1 tablet PO BIDPRN PRN
Polyethylene Glycol Powder [Miralax] 17 grams PO DAILYPRN PRN
07/18/24 00:26
Consult Notification Routine
Specialty to Notify: Nephrology
Date consulting provider notified: 07/18/24
Time consulting provider notified: 08:17
Notified:: Provider
NEPHROLOGY CONSULT Routine
Consulting Provider: Orin Salmon
Was physician already notified: No
Reason for consult: UTI, SEBASTIÁN, dehydration,Hi AG Metabolic acidosis, Hyponatremia
Activity As Directed
Activity Level: With Assistance
Intake/ Output As Directed
Frequency: Per unit guidelines
Vital Signs As Directed
Frequency: Per unit guidelines
Weight As Directed
Frequency: Daily
DX Deep Vein Thrombosis Video Routine
07/18/24 Breakfast
Gluten Free
At Your Request: Full Participation
Regular
At Your Request: Full Participation
Levothyroxine [Synthroid] 175 mcg PO DAILY @ 0600
07/18/24 06:37
Complete Blood Count/No Diff IN AM
Comprehensive Metabolic Panel IN AM
Ferritin IN AM
Magnesium IN AM
TSH IN AM
07/18/24 08:00
Ferrous Sulfate [Feosol] 325 mg PO DAILY
Heparin 5,000 units SC Q12
Metoprolol Xl [Toprol Xl] 50 mg PO DAILY
07/19/24 11:00
DC Protocol for Telemetry ONCE
Abnormal Lab Results
07/17/24
18:36
MCHC 32.8 L g/dL
(33.0-37.0)
RDW 20.6 H %
(11.5-14.5)
MPV 10.6 H fL
(7.4-10.4)
Abs Immat Gran (auto) 0.1 H 10^3/uL
(0-0.05)
Absolute Monos (auto) 0.9 H 10^3/uL
(0.1-0.6)
Immature Gran % 0.7 H %
(0-0.5)
Lymphocytes % 14.2 L %
(20.5-51.1)
Monocytes % 10.5 H %
(1.7-9.3)
Sodium 130 L mmol/L
(135-145)
Carbon Dioxide 11 L* mmol/L
(22-30)
BUN 42 H mg/dl
(7-17)
Creatinine 2.2 H mg/dL
(0.6-1.0)
Glucose 118 H mg/dl
(70-99)
Calcium 10.3 H mg/dl
(8.4-10.2)
AST 48 H U/L
(14-36)
ALT 56 H U/L
(0-35)
Alkaline Phosphatase 266 H U/L
(38-126)
Leukocyte Esterase Rfl 2+ A
(Negative)
Urine WBC (Reflex) 50-60 A /HPF
(0-5)
Urine Bacteria (Reflex) Few A
(Negative)
07/17/24 18:36
07/17/24 18:36
Vital Signs
Initial and Last Documented VS:
Initial Vital Signs
Temp Pulse Resp BP Pulse Ox
97.7 F 86 16 143/65 99
07/17/24 18:15 07/17/24 18:15 07/17/24 18:15 07/17/24 18:15 07/17/24 18:15
Last Documented Vital Signs
Temp Pulse Resp BP Pulse Ox
97.3 F 65 20 130/61 100
07/19/24 11:00 07/19/24 15:30 07/19/24 15:30 07/19/24 15:30 07/19/24 15:30
MDM/Problems Addressed
Differential Diagnosis Includes:
UTI, urine retention
MDM/Problems Addressed:
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 presents w minimal urination in past 3 days along with increased liquid drainage in her colostomy bag over the last 1-2 weeks. Has 'pressure'
suprapubic.
Bladder scan in triage: minimal urine in bladder
Pt is totally non toxic appearing, pleasant
CBC: No clinically significant abnormality
CMP: BUN/Creat 42/2.2 Na 130. Bicarb 11
Anion gap 18
U/A Neg nitrites, 2+ Leukocyte esterase, WBC 50-60 urine culture pending.
Suspect metabolic acidosis with reported increase in colostomy output
Acute renal insufficiency most likely from dehydration. IV fluids infusing
10:07 p.m.
Plan: Admit: metabolic acidosis, acute renal insufficiency, increased ileostomy output
CT abd/pelvis plain pending for lower abdominal pain
Multiple urine cultures in the past have no growth, will treat with one dose Monurol pending urine culture
Hospitalist notified of admission
*Critical Care Note
Total Time (30-74mins, 75-104mins- exclusive of procedures): Not Applicable
ED Attending Note
-
Portions of this chart may have been created with voice recognition software.� Occasional wrong word or��sound alike� substitutions may have occurred due to the inherent limitations of voice recognition software.
Discharge Plan
Departure
Patient Disposition: Admit
Date of Disposition: 07/17/24
Time of Disposition: 22:03
Presentation/result/management discussed w/ accepting MD/DO: Hospitalist
Condition: Fair
Discharge Problem:
Metabolic acidosis, increased anion gap (IAG)
Interventions
Interventions:
*Risk Screen - Suicide Last Done: 07/17/24 18:15
*General Assessment Last Done: 07/17/24 21:09
*Neglect/Abuse Screening Last Done: 07/17/24 18:15
*Nursing Disposition Last Done: 07/18/24 00:39
ED-Female Genitourinary Assessment Last Done: 07/17/24 21:05
Discharge Date and Time
Discharge Date/Time: 07/18/24 00:40
[2024-07-17] MEDS: NSS 1000 IV (21:55)
[2024-07-17 22:35] VITALS: BP 114/50
[2024-07-17] MEDS: MONUROL 3 GM PO (22:37)
--- NOTE | 2024-07-17 22:47 | HPS.HSE ---
Addendum entered and electronically signed by Alireza Stein MD 07/17/24 23:14:
Diet;: switch to Gluten free diet due to HX Celiac dz
Original Note:
Family Physician
-
Family Physician: Braeden Moore
Chief Complaint
-
minimal urination, low urine output, increased colotomy output
History of Present Illness
HPI
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
- increased liquid drainage in her colostomy bag over the last 1-2 weeks
- felt suprapubic pressure: Bladder scan in triage shows minimal urine in bladder
Medical History
Past Medical History
Past Medical History: Reports Other
Additional Past Medical History:
HTN
Hypothyroidism
Chr Lymphedema
Anemia
irritable bowel
Perforated diverticulitis
ulcerative colitis
celiac disease
hidradenitis status post radiation therapy
Past Surgical History: Reports Appendectomy, Bowel Resection (Total Proctocolectomy with Ileostomy, numerous skin grafts), Cholecystectomy, Gynocological (Left falopian tube removed), Orthopedic (L hip replaced 05/11/24) and Tonsilectomy
Social History
Tobacco: Non-smoker
Alcohol: Daily (Adele 1-2 glasses)
Drug: None
Personal:
Living: With Family
Family History
Family History: Not pertinent
Allergies / Home Medications
Allergies reflects when Allergies were last updated in [facility].
Home Medications with original date entered in [facility]
Allergy/Medication List:
Allergies
Allergy/AdvReac Type Severity Reaction Status Date / Time
adhesive Allergy Rash, ITCHY Verified 05/23/24 14:01
cephalexin monohydrate Allergy diarrhea Verified 05/23/24 14:01
[From Keflex]
gluten Allergy has celiac Verified 05/23/24 14:01
disease
galidium Allergy red rash Uncoded 05/11/24 09:11
Home Medications
levothyroxine 175 mcg tablet 175 mcg PO DAILY Thyroid 04/03/18
metoprolol succinate 25 mg tablet,extended release 24 hr (Toprol XL) 50 mg PO DAILY Blood pressure 04/18/21
ergocalciferol (vitamin D2) 1,250 mcg (50,000 unit) capsule (Vitamin D2) 1,250 mcg PO FR Supplement 05/05/24
ferrous sulfate 325 mg (65 mg iron) tablet 325 mg PO DAILY #30 tabs 05/12/24
diphenhydramine HCl 50 mg capsule (Sleep Aid (diphenhydramine)) 50 mg PO HSPRN PRN insomnia 07/17/24
Review of Systems
-
Constitutional: Reports No Symptoms
EENT: Reports No Symptoms
Respiratory: Reports No Symptoms
Cardiac: Reports No Symptoms
Abdomen/GI: Reports Abdominal Pain (lower )
: Reports See HPI
Musculoskeletal: Reports No Symptoms
Skin: Reports No Symptoms
Neurological: Reports No Symptoms
Endocrine: Reports No Symptoms
Hematologic/Lymphatic: Reports No Symptoms
Psych: Reports No Symptoms
Physical Exam
Vital Signs
Vital Signs
Temp Pulse Resp BP Pulse Ox
97.7 F 78 19 114/50 98
07/17/24 18:15 07/17/24 22:35 07/17/24 22:35 07/17/24 22:35 07/17/24 22:35
Physical Exam
General: No Apparent Distress and Conversant
HEENT: NormoCephalic, Anicteric and Atraumatic
Respiratory: Clear; No Wheezes, Rales or Rhonchi
Cardiac: S1/S2 and Regular Rhythm; No Murmur
Breast: Deferred by me
GI: Soft, Tender (mild suprapubic tendernes) and Ostomy (ileostomy bag intact )
Rectal: Deferred by Provider
Genito-urinary: Deferred by me
Skin: Other
Neuro: AO x 3 and No Motor Deficits
Psych: Calm
Laboratory Results
-
07/17/24 18:36
07/17/24 18:36
Laboratory Results
Total Bilirubin 1.0 mg/dl (0.2-1.3) 07/17/24 18:36
AST 48 U/L (14-36) H 07/17/24 18:36
ALT 56 U/L (0-35) H 07/17/24 18:36
Alkaline Phosphatase 266 U/L (38-126) H 07/17/24 18:36
Data Reviewed
-
Lab Data: Labs Reviewed by me
Old Records: Reviewed
Impression/Plan
-
Vital Signs
Temp Pulse Resp BP Pulse Ox
97.7 F 78 19 114/50 98
07/17/24 18:15 07/17/24 22:35 07/17/24 22:35 07/17/24 22:35 07/17/24 22:35
Data
CBC: No significant abnormality. Hgb 15. Nl MCV
CMP: BUN/Creat 42/2.2 Na 130. Bicarb 11
Anion gap 18
Ca 10.3
AST 48. ALT 56. AKP 266
U/A Neg nitrites, 2+ Leukocyte esterase, WBC 50-60 urine culture pending.
Last hospitalist admission: DATE OF ADMISSION: 04/16/2021 - DATE OF DISCHARGE: 04/20/2021
DC DXs:
1. Partial small bowel obstruction.
2. Essential hypertension with hypertensive urgency.
ASSESSMENT & PLAN
UTI presumed symptomatic: s/p one dose Monurol @ ER
Associated supra pubic discomfort/ Lower abdominal pain but afebrile. Nl WCC
Sono evidence of empty bladder
HX Multiple UCx in the past have no growth s/p one dose Monurol
- pending urine culture
- No prior POS UCx
- follow UCx till then hold off further ABx
SEBASTIÁN due to high ileostomy output plus probably UTI
Hi AG Metabolic acidosis@18 probably due to intestinal Bicarb loss due to high ileostomy output
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
Mild hypercalcemia due to dehydration
Marginal hypotension
- cont. [employer]GER Metoprolol succinate but to hold if SBP < 110
- s/p NS 1 L at ER : then cont IV NS 100/H
- f/u Cr, HCO3 , Na, Ca in AM
- Renal consult
Mild transaminitis likely due to shock liver due to dehydration and hypotesion
- IV NS
- observe LFTs
Essential HTN
- on [employer] MA[employer]GER Metoprolol sux hold if SBP < 110
Chronic condition:
HX Microcytic anemia due to Fe def: on Ferrous sulfate daily- to be cont
HX Celiac disease.
HX Hypothyroidism on LT 175mcg daily - to be cont
Obesity due to excess calories with a BMI of 37.6.
DVT Px: SQH
Code: Full
IP TLM
[2024-07-18] VITALS (8 sets, daily range): BP systolic 89–144; BP diastolic 55–64; BMI 29.4
[2024-07-18] MEDS: FLUSH (NSS) 1 FLUSH IV (00:19)
[2024-07-18] MEDS: NSS 1000 IV (01:31)
--- NOTE | 2024-07-18 01:40 | PTCARENOTE ---
Received pt from ED via stretcher. Patient transferred to standing scale with minimal assistance. All orders reviewed and acknowledged. Patient updated with Plan of care along with orientation to room. Call pollock within reach. Bed locked and low to
floor.
[2024-07-18] MEDS: SYNTHROID 175 MCG PO (05:24)
[2024-07-18 07:05] LABS: Hematocrit 38.8 % (37.0-47.0); Hemoglobin 13.2 g/dL (12.0-16.0); Mean Corpuscular Hgb 30.3 pg (27.0-31.0); Platelet Count 148 10^3/uL (130-400); Red Blood Cell Count 4.36 10^6/uL (4.20-5.40); Red Cell Dist. Width 20.3 % (11.5-14.5); White Blood Cell Count 5.6 10^3/uL (4.8-10.8)
[2024-07-18 08:03] LABS: TSH 1.88 uIU/ml (0.47-4.68)
[2024-07-18 08:07] LABS: Ferritin 38.3 ng/ml (11.1-264.0)
[2024-07-18 08:23] LABS: ALT (SGPT) 45 U/L (0-35); AST (SGOT) 42 U/L (14-36); Albumin 3.3 g/dl (3.5-5.0); Alkaline Phosphatase 201 U/L (38-126); Blood Urea Nitrogen 40 mg/dl (7-17); Calcium 9.6 mg/dl (8.4-10.2); Carbon Dioxide 12 mmol/L (22-30); Chloride 107 mmol/L (98-107); Estimated Creatinine Clearance 19 ml/min; Glucose 94 mg/dl (70-99); Magnesium 1.6 mg/dl (1.6-2.3); Potassium 3.8 mmol/L (3.5-5.1); Sodium 133 mmol/L (135-145); Total Bilirubin 0.9 mg/dl (0.2-1.3); Total Protein 5.7 g/dl (6.3-8.2); eGFR 24.48
--- NOTE | 2024-07-18 09:33 | W.PN.HOSP.TC ---
Today's Communication/Plan
-
IV bicarbonate infusion. IV antibiotics. Nephrology consult.
Assessment / Plan
Assessment / Plan
Physical Exam
General: No Apparent Distress and Conversant
HEENT: NormoCephalic, Anicteric and Atraumatic
Respiratory: Clear; No Wheezes, Rales or Rhonchi
Cardiac: S1/S2 and Regular Rhythm; No Murmur
Breast: Deferred by me
GI: Soft, Tender (mild suprapubic tendernes) and Ostomy (ileostomy bag intact )
Rectal: Deferred by Provider
Genito-urinary: Deferred by me
Skin: Other
Neuro: AO x 3 and No Motor Deficits
Psych: Calm
A/P:
UTI presumed symptomatic: s/p one dose Monurol @ ER. Concerns for sepsis.
Associated supra pubic discomfort/ Lower abdominal pain but afebrile. Nl WCC
Sono evidence of empty bladder
HX Multiple UCx in the past have no growth s/p one dose Monurol
- pending urine culture
- No prior POS UCx
- follow UCx
-Start empirically on IV ceftriaxone 1 g daily and metronidazole 500 mg IV every 8 hours.
-Check C. difficile and stool cultures and norovirus
SEBASTIÁN due to high ileostomy output plus probably UTI
Hi AG Metabolic acidosis@18 probably due to intestinal Bicarb loss due to high ileostomy output
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
Mild hypercalcemia due to dehydration
Marginal hypotension
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
- s/p NS 1 L at ER : then cont IV NS 100/H
- f/u Cr, HCO3 , Na, Ca in AM
- Renal consult pending. Stat bicarbonate bolus now and start IV Bicarbonate infusion this morning.
Mild transaminitis likely due to shock liver due to dehydration and hypotesion
- IV NS
- observe LFTs
Essential HTN
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
Chronic condition:
HX Microcytic anemia due to Fe def: on Ferrous sulfate daily- to be cont
HX Celiac disease.
HX Hypothyroidism on LT 175mcg daily - to be cont
Obesity due to excess calories with a BMI of 37.6.
DVT Px: SQH
Code: Full
Total time spent on today's encounter was 52 minutes which included time spent in counseling the patient/family regarding diagnosis and treatment plan as listed above, goals of care, and symptom management. Case was discussed with nursing staff,
specialists, and care coordinators/case management. All labs and imaging personally reviewed by me. Remainder the time spent in detailed review of previous records, lab data, imaging, and other medical provider documentation.
Anticipated Discharge: > 48 hours
Subjective/Interval History
-
Date of Service: July 18, 2024
Patient complains of abdominal pain intermittent in nature and also dysuria and urgency. She describes as 'feeling pressure on the bladder'. Hypotensive earlier. Acidemia.
Objective Data
-
Labs:
Laboratory Results
07/18/24
06:37
WBC 5.6
Hgb 13.2
Hct 38.8
Plt Count 148 D
Sodium 133 L
Potassium 3.8
Chloride 107
Carbon Dioxide 12 L*
BUN 40 H
Creatinine 2.0 H
Glucose 94
Calcium 9.6
Total Bilirubin 0.9
AST 42 H
ALT 45 H
Alkaline Phosphatase 201 H
Vital Signs:
Vital Signs
Temp Pulse Resp BP Pulse Ox
97.4 F 74 20 114/64 98
07/18/24 07:30 07/18/24 07:30 07/18/24 07:30 07/18/24 07:30 07/18/24 07:30
I&O
07/17/24 07/18/24 07/19/24
06:59 06:59 06:59
Intake Total 400 / 400
Output Total 475 / 475
Balance 400 / 400 -475 / -475
[2024-07-18] MEDS: SODIUM BICARBONATE 50 MEQ IV (09:36)
[2024-07-18] MEDS: SODIUM BICARBONATE 1075 MEQ IV ×2 (09:36→19:44)
[2024-07-18] MEDS: TOPROL XL 50 MG PO (09:41)
[2024-07-18] MEDS: FEOSOL 325 MG PO (09:41)
--- NOTE | 2024-07-18 10:14 | CM ---
patient admitted from home. She lives in independent living at [facility]. she is on 4th floor with elevator access.
She is very active in her community. She has rolling walker, cane, commode and hip kit. She was going to outpatient PT s/p hip replacement with Dr. Gray.
PCp Dr. sallie Moore
Pharmacy: [facility]
PLAN: home no needs
[2024-07-18] MEDS: STERILE WATER FOR INJECTION 10 ML IV (14:31)
[2024-07-18] MEDS: TUMS CHEWABLE TABLET 200 MG PO (14:31)
[2024-07-18] MEDS: ROCEPHIN 1000 MG IV (14:31)
[2024-07-18 14:39] LABS: Lactic Acid 1.2 mmol/L (0.7-2.0)
[2024-07-18] MEDS: FLAGYL 500 MG 100 IV (15:51)
--- NOTE | 2024-07-18 17:03 | W.CON.NEPH ---
Consultation
-
Date/Time Consultation Requested: 07/18/24 0026
Date/Time Consultation Performed: 07/18/24 1715
Requesting Provider: harrison Gómez
Performing Provider: Orin Moreno
Reason for Consultation: SEBASTIÁN and met acidosis
Medical History
-
Chief Complaint: Decreased UOP, increased ostomy out put
History of Present Illness:
83F recent HX THR 05/11, [facility], Ulcerative colitis history of total proctocolectomy with permanent�ileostomy 25yrs ago, iron def anemia not on po iron, HTN on metoprolol, hypothyroidism on levothyroxine, Lymphedema who noticed increased GI out
put for last 2-3weeks and noted decreased UOP for last 3days Hence presented to the ER yesterday. She reports having a hip replacement in April since that time she had used antibiotics intermittently most recently for UTI cephalosporins last
week. to pursue trying to increase her fluid intake with ongoing GI losses. No change in her appetite. No abdominal pain. 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 On arrival her cr was at 2.2, bicarb was at 11, sodium 130. She received 1lit
NS bolus and continued on NS, Repeat labs this am cr still at 2, bicarb 12, sodium 133. Nephrology consulted for further eval. she reports having chills prior to the admission but no fevers. No chest pain or shortness of breath or coughing.
Past Medical History
HTN
Hypothyroidism
Chr Lymphedema
Anemia
irritable bowel
Perforated diverticulitis
ulcerative colitis
celiac disease
hidradenitis status post radiation therapy
Past Surgical History: Other (Appendectomy, Bowel Resection (Total Proctocolectomy with Ileostomy, numerous skin grafts), Cholecystectomy, Gynocological (Left falopian tube removed), Orthopedic (L hip replaced 05/11/24) and Tonsilectomy)
Social History
Tobacco: Non-Smoker
Alcohol: Daily (arnold 1-2 glasses)
Drug: None
Personal:
Living: With Family
Family History
The brother with kidney disease, diabetes
Son with diabetes
Allergies / Home Medications
Allergy/AdvReac Type Severity Reaction Status Date / Time
adhesive Allergy Rash, ITCHY Verified 05/23/24 14:01
cephalexin monohydrate Allergy diarrhea Verified 05/23/24 14:01
[From Keflex]
gluten Allergy has celiac Verified 05/23/24 14:01
disease
galidium Allergy red rash Uncoded 05/11/24 09:11
�Medication �Instructions �Recorded �Confirmed �Type
levothyroxine 175 mcg tablet 175 mcg PO DAILY Thyroid 04/03/18 07/17/24 History
metoprolol succinate 25 mg 50 mg PO DAILY Blood pressure 04/18/21 07/17/24 History
tablet,extended release 24 hr
(Toprol XL)
ergocalciferol (vitamin D2) 1,250 1,250 mcg PO FR Supplement 05/05/24 07/17/24 History
mcg (50,000 unit) capsule (Vitamin
D2)
ferrous sulfate 325 mg (65 mg 325 mg PO DAILY #30 tabs 05/12/24 07/17/24 Rx
iron) tablet
diphenhydramine HCl 50 mg capsule 50 mg PO HSPRN PRN insomnia 07/17/24 07/17/24 History
(Sleep Aid (diphenhydramine))
Review of Systems
-
All complete 12 point ROS have been inquired and found negative other than stated in HPI
Physical Exam
Vital Signs
Vital Signs
Temp Pulse Resp BP Pulse Ox
98.1 F 79 20 89/61 96
07/18/24 15:55 07/18/24 15:55 07/18/24 15:55 07/18/24 15:55 07/18/24 15:55
Lab Results
WBC 5.6 10^3/uL (4.8-10.8) 07/18/24 06:37
RBC 4.36 10^6/uL (4.20-5.40) 07/18/24 06:37
Hgb 13.2 g/dL (12.0-16.0) 07/18/24 06:37
Hct 38.8 % (37.0-47.0) 07/18/24 06:37
Plt Count 148 10^3/uL (130-400) D 07/18/24 06:37
Sodium 133 mmol/L (135-145) L 07/18/24 06:37
Potassium 3.8 mmol/L (3.5-5.1) 07/18/24 06:37
Chloride 107 mmol/L (98-107) 07/18/24 06:37
Carbon Dioxide 12 mmol/L (22-30) L* 07/18/24 06:37
BUN 40 mg/dl (7-17) H 07/18/24 06:37
Creatinine 2.0 mg/dL (0.6-1.0) H 07/18/24 06:37
eGFR 24.48 07/18/24 06:37
Glucose 94 mg/dl (70-99) 07/18/24 06:37
Calcium 9.6 mg/dl (8.4-10.2) 07/18/24 06:37
Albumin 3.3 g/dl (3.5-5.0) L 07/18/24 06:37
CT abd with out IV :
IMPRESSION:
Prior surgical changes likely colectomy with right lower quadrant ileostomy and accompanying unremarkable parastomal hernia containing small bowel. Additional lower anterior abdominal wall hernia containing unremarkable small bowel.
Some fluid-filled loops of small bowel with some nonspecific air-fluid levels within the true pelvis which may reflect ileus or enteritis. No free air.
Small hiatal hernia.
Evaluation of the soft tissues of the true pelvis significantly obscured by beam hardening artifact from left hip arthroplasty.
Prior cholecystectomy, stable.
Physical Exam
General: Awake, Alert, Oriented, AOx3, No Distress and Nontoxic
HEENT: EOMI, Anicteric, Conjunctivae Clear, Facial Symmetry and No JVD
Respiratory: Clear, Normal Excursion and Nonlabored Respirations
Cardiac: S1/S2 and Regular Rate/Rhythm
Breast: Deferred by me
Abdomen: Soft, Nontender and Nondistended
Musculoskeletal: No Cyanosis and No Edema
Skin: No Rash
Neuro: Nonfocal/Grossly Intact
Psych: Mood/afflect pleasant, Insight/judgement good and Appropriate
Data Reviewed
-
Radiology: Report Reviewed by me and Discussed with Patient
Labs: Labs Reviewed by me, Discussed with Nurse and Discussed with Patient
Assessment/Plan
-
IMP:
UTI presumed symptomatic
SEBASTIÁN due to high ileostomy -baseline cr 1
AG Metabolic acidosis
Acute on chr Hyponatremia
Mild hypercalcemia
Marginal hypotension
Mild transaminitis likely due to shock liver
Essential HTN
Ulcerative colitis with history of total proctocolectomy with permanent ileostomy.
HX Microcytic anemia due to Fe def
HX Celiac disease.
HX Hypothyroidism
Obesity due to excess calories with a BMI of 37.6.
Liver fibrosis with chronically elevated transaminases
Plan;
A/w increased GI out put form ileostomy and UTI symp
recently took abx intermittently for different reasons, mainly UTI
SEBASTIÁN-likely prerenal, UA UTI sample
Would cont IVF and repeat labs
mixed met acidosis-if worsening change to [id number]
monitor UOP, no hydro on CT
BP are soft, holding parameters for BB
abx per primary and await for cxs
d/w pt and nursing
[2024-07-19 01:00] LABS: Blood Urea Nitrogen 42 mg/dl (7-17); Calcium 9.2 mg/dl (8.4-10.2); Carbon Dioxide 16 mmol/L (22-30); Chloride 109 mmol/L (98-107); Estimated Creatinine Clearance 23 ml/min; Glucose 103 mg/dl (70-99); Potassium 3.5 mmol/L (3.5-5.1); Sodium 137 mmol/L (135-145); eGFR 29.76
[2024-07-19] MEDS: FLAGYL 500 MG 100 IV ×2 (01:03→09:37)
[2024-07-19 03:19] VITALS: BP 119/60
[2024-07-19] MEDS: SYNTHROID 175 MCG PO (04:45)
[2024-07-19] MEDS: SODIUM BICARBONATE 1075 MEQ IV (05:59)
[2024-07-19 06:00] VITALS: BMI 29.6
[2024-07-19 07:34] LABS: % Basophils 0.6 % (0-2); % Eosinophils 4.5 % (0-6); % Immature Granulocytes 0.4 % (0-0.5); % Lymphocytes 22.2 % (20.5-51.1); % Monocytes 11.2 % (1.7-9.3); % Neutrophils 61.1 % (42.2-75.2); Absolute Eosinophils 0.2 10^3/uL (0-0.7); Absolute Monocytes 0.5 10^3/uL (0.1-0.6); Absolute Neutrophils 2.8 10^3/uL (1.4-6.5); Hematocrit 37.4 % (37.0-47.0); Hemoglobin 13.2 g/dL (12.0-16.0); Mean Corp Hgb Conc. 35.3 g/dL (33.0-37.0); Mean Corpuscular Hgb 30.3 pg (27.0-31.0); Mean Corpuscular Volume 85.8 fL (81.0-99.0); Mean Platelet Volume 10.7 fL (7.4-10.4); Nucleated Red Blood Cells % 0 %; Platelet Count 146 10^3/uL (130-400); Red Blood Cell Count 4.36 10^6/uL (4.20-5.40); Red Cell Dist. Width 20.4 % (11.5-14.5); White Blood Cell Count 4.6 10^3/uL (4.8-10.8)
[2024-07-19 07:55] VITALS: BP 132/68
[2024-07-19 08:05] LABS: ALT (SGPT) 35 U/L (0-35); AST (SGOT) 34 U/L (14-36); Albumin 3.2 g/dl (3.5-5.0); Alkaline Phosphatase 194 U/L (38-126); Blood Urea Nitrogen 38 mg/dl (7-17); Calcium 9.1 mg/dl (8.4-10.2); Carbon Dioxide 18 mmol/L (22-30); Chloride 108 mmol/L (98-107); Estimated Creatinine Clearance 28 ml/min; Glucose 93 mg/dl (70-99); Potassium 3.2 mmol/L (3.5-5.1); Sodium 138 mmol/L (135-145); Total Bilirubin 0.6 mg/dl (0.2-1.3); Total Protein 5.7 g/dl (6.3-8.2); eGFR 37.56
[2024-07-19] MEDS: TOPROL XL 50 MG PO (09:42)
[2024-07-19] MEDS: FEOSOL 325 MG PO ×2 (09:42)
--- NOTE | 2024-07-19 10:21 | W.PN.HOSP.TC ---
Today's Communication/Plan
-
IV antibiotics. PT OT eval
Assessment / Plan
Assessment / Plan
Physical Exam
General: No Apparent Distress and Conversant
HEENT: NormoCephalic, Anicteric and Atraumatic
Respiratory: Clear; No Wheezes, Rales or Rhonchi
Cardiac: S1/S2 and Regular Rhythm; No Murmur
Breast: Deferred by me
GI: Soft, Tender (mild suprapubic tendernes) and Ostomy (ileostomy bag intact )
Rectal: Deferred by Provider
Genito-urinary: Deferred by me
Skin: Other
Neuro: AO x 3 and No Motor Deficits
Psych: Calm
A/P:
Sepsis due to UTI:
Continue IV ceftriaxone and would treat to at least complete 5 days.
Add some Pyridium as needed
Urine culture with more than 75K colonies and some contamination but also she has received antibiotics prior and she has indeed urinary symptoms.
Blood cultures no growth
Updated at bedside today
PT OT eval
SEBASTIÁN:
Due to GI losses
Stop IV fluids
Nephrology consult appreciated
Creatinine 2.2--> down to 1.4 today
Diarrhea:
C. difficile negative
Norovirus negative
Salmonella, Campylobacter and Shiga toxin pending.
Hypotension:
Improved
On IVF yesterday
Anion gap metabolic acidosis:
On IV bicarb drip on 07/18
Off today
Bicarb 11--> up to 18 today
Hyponatremia:
Back up to normal today
Continue to monitor
Hypokalemia:
Replete and trend
History of ulcerative colitis with history of total proctocolectomy end ileostomy:
Ostomy nurse follow-up in am
Hypertension:
Continue her beta-blockers
Hypothyroidism:
Continue levothyroxine 175 mcg p.o. daily
DVT prophylaxis:
Heparin SQ
CODE STATUS:
Full code
Total time spent on today's encounter was 52 minutes which included time spent in counseling the patient/family regarding diagnosis and treatment plan as listed above, goals of care, and symptom management. Case was discussed with nursing staff,
specialists, and care coordinators/case management. All labs and imaging personally reviewed by me. Remainder the time spent in detailed review of previous records, lab data, imaging, and other medical provider documentation.
Anticipated Discharge: 24 - 48 hours
Subjective/Interval History
-
Date of Service: July 19, 2024
Patient feels better today. Still having some dysuria. Blood pressure better today. Afebrile.
Objective Data
-
Labs:
Laboratory Results
07/19/24 07/19/24
00:38 07:26
WBC 4.6 L
Hgb 13.2
Hct 37.4
Plt Count 146
Sodium 137 138
Potassium 3.5 3.2 L
Chloride 109 H 108 H
Carbon Dioxide 16 L 18 L
BUN 42 H 38 H
Creatinine 1.7 H 1.4 H
Glucose 103 H 93
Calcium 9.2 9.1
Total Bilirubin 0.6
AST 34
ALT 35
Alkaline Phosphatase 194 H
Vital Signs:
Vital Signs
Temp Pulse Resp BP Pulse Ox
97.3 F 76 16 132/68 97
07/19/24 07:55 07/19/24 07:55 07/19/24 07:55 07/19/24 09:42 07/19/24 07:55
I&O
07/18/24 07/19/24 07/20/24
06:59 06:59 06:59
Intake Total 400 / 400 3460 / 3460
Output Total 1225 / 1225 900 / 900
Balance 400 / 400 2235 / 2235 -900 / 900
[2024-07-19 11:00] VITALS: BP 130/58
[2024-07-19] MEDS: ROCEPHIN 1000 MG IV (13:12)
[2024-07-19] MEDS: STERILE WATER FOR INJECTION 10 ML IV (13:12)
[2024-07-19] MEDS: Pyridium 100 MG PO (13:32)
[2024-07-19] MEDS: KCL 40 MEQ PO (13:32)
[2024-07-19 15:30] VITALS: BP 130/61
--- NOTE | 2024-07-19 15:33 | W.PN.NEPH.PH ---
Today's Communication / Plan
-
labs later today, prn IVF
start po bicarb
Assessment/Plan
-
IMP:
UTI presumed symptomatic
SEBASTIÁN due to high ileostomy -baseline cr 1
AG Metabolic acidosis
Acute on chr Hyponatremia
Mild hypercalcemia
Marginal hypotension
Mild transaminitis likely due to shock liver
Essential HTN
Ulcerative colitis with history of total proctocolectomy with permanent ileostomy.
HX Microcytic anemia due to Fe def
HX Celiac disease.
HX Hypothyroidism
Obesity due to excess calories with a BMI of 37.6.
Liver fibrosis with chronically elevated transaminases
Plan;
A/w increased GI out put form ileostomy and UTI symp
recently took abx intermittently for different reasons, mainly UTI
SEBASTIÁN-likely prerenal, UA UTI sample
cr improving to 1.4
ok to resume iVF if needed
mixed met acidosis-improving , will add po bicarb
monitor UOP, no hydro on CT
BP better, holding parameters for BB
abx per primary and await for cxs
replace k
d/w pt
-
-
Date of Service: July 19, 2024
CC / HPI / ROS
-
Chief Complaint:
SEBASTIÁN, met acidosis
History of Present Illness:
cr better at 1.4, k low 3.2
improving met acidosis, bicarb 18
BP stable
U cx mixed alex
Review of Systems:
increased out put still
no abd pian
dysuria
no n/v
Labs
-
Labs:
WBC 4.6 10^3/uL (4.8-10.8) L 07/19/24 07:26
RBC 4.36 10^6/uL (4.20-5.40) 07/19/24 07:26
Hgb 13.2 g/dL (12.0-16.0) 07/19/24 07:26
Hct 37.4 % (37.0-47.0) 07/19/24 07:26
Plt Count 146 10^3/uL (130-400) 07/19/24 07:26
Sodium 138 mmol/L (135-145) 07/19/24 07:26
Potassium 3.2 mmol/L (3.5-5.1) L 07/19/24 07:26
Chloride 108 mmol/L (98-107) H 07/19/24 07:26
Carbon Dioxide 18 mmol/L (22-30) L 07/19/24 07:26
BUN 38 mg/dl (7-17) H 07/19/24 07:26
Creatinine 1.4 mg/dL (0.6-1.0) H 07/19/24 07:26
eGFR 37.56 07/19/24 07:26
Glucose 93 mg/dl (70-99) 07/19/24 07:26
Calcium 9.1 mg/dl (8.4-10.2) 07/19/24 07:26
Albumin 3.2 g/dl (3.5-5.0) L 07/19/24 07:26
Physical Exam
-
Vital Signs:
Vital Signs
Temp Pulse Resp BP Pulse Ox
97.3 F 64 20 130/58 97
07/19/24 11:00 07/19/24 11:00 07/19/24 11:00 07/19/24 11:00 07/19/24 11:00
Cardiovascular:: Regular rate and rhythm
Respiratory:: Bilateral: CTA
Lung Excursion:: Normal
Abdomen:: Nontender and Soft
Extremity Edema:: None: Bilateral:
Cuevas Catheter: No
[2024-07-19] MEDS: SODIUM BICARBONATE 650 MG PO ×2 (16:19→21:14)
[2024-07-19 23:33] VITALS: BP 125/62
[2024-07-20] MEDS: SYNTHROID 175 MCG PO (05:24)
[2024-07-20 06:00] VITALS: BMI 29.8
[2024-07-20 06:48] VITALS: BP 126/65
[2024-07-20 08:22] LABS: % Basophils 0.8 % (0-2); % Eosinophils 4.8 % (0-6); % Immature Granulocytes 0.4 % (0-0.5); % Lymphocytes 18.2 % (20.5-51.1); % Monocytes 8.9 % (1.7-9.3); % Neutrophils 66.9 % (42.2-75.2); Absolute Eosinophils 0.3 10^3/uL (0-0.7); Absolute Lymphocytes 0.9 10^3/uL (1.2-3.4); Absolute Monocytes 0.5 10^3/uL (0.1-0.6); Absolute Neutrophils 3.5 10^3/uL (1.4-6.5); Hemoglobin 13.2 g/dL (12.0-16.0); Mean Corp Hgb Conc. 34.7 g/dL (33.0-37.0); Mean Corpuscular Hgb 30.6 pg (27.0-31.0); Mean Platelet Volume 11.1 fL (7.4-10.4); Nucleated Red Blood Cells % 0 %; Platelet Count 148 10^3/uL (130-400); Red Blood Cell Count 4.32 10^6/uL (4.20-5.40); Red Cell Dist. Width 20.9 % (11.5-14.5); White Blood Cell Count 5.2 10^3/uL (4.8-10.8)
[2024-07-20 08:39] LABS: Blood Urea Nitrogen 23 mg/dl (7-17); Calcium 9.6 mg/dl (8.4-10.2); Carbon Dioxide 17 mmol/L (22-30); Chloride 109 mmol/L (98-107); Estimated Creatinine Clearance 36 ml/min; Glucose 114 mg/dl (70-99); Potassium 3.5 mmol/L (3.5-5.1); Sodium 138 mmol/L (135-145); eGFR 50.17
[2024-07-20] MEDS: SODIUM BICARBONATE 650 MG PO ×3 (09:06→20:59)
[2024-07-20] MEDS: FEOSOL 325 MG PO (09:07)
[2024-07-20] MEDS: TOPROL XL 50 MG PO (09:07)
--- NOTE | 2024-07-20 09:39 | PTCARENOTE ---
WO RN assist: Patient consulted for Ileostomy. Assessed and spoke with patient. No concerns or questions at this time. Ileostomy site CDI with no leakage with patient own pouch. Supplies offered to patient, denied as she stated she carries her
own supplies. WO RN to sign off at this time.
--- NOTE | 2024-07-20 09:40 | WOUNDNOTE ---
WOYu RN assist Mac Greenwood confirmed with HESHAM RODRIGUEZ consult not needed; see Mac Greenwood's note.
[2024-07-20 10:06] VITALS: BP 130/67; PULSE 72; O2SAT 98
[2024-07-20 10:07] VITALS: BP 130/67; PULSE 74; O2SAT 97
--- NOTE | 2024-07-20 11:53 | W.PN.NEPH.PH ---
Today's Communication / Plan
-
Observe on sodium bicarb
Follow lab work while inpatient
Assessment/Plan
-
IMP:
UTI presumed symptomatic
SEBASTIÁN due to high ileostomy -baseline cr 1
AG Metabolic acidosis
Acute on chr Hyponatremia
Mild hypercalcemia
Marginal hypotension
Mild transaminitis likely due to shock liver
Essential HTN
Ulcerative colitis with history of total proctocolectomy with permanent ileostomy.
HX Microcytic anemia due to Fe def
HX Celiac disease.
HX Hypothyroidism
Obesity due to excess calories with a BMI of 37.6.
Liver fibrosis with chronically elevated transaminases
Plan;
A/w increased GI out put form ileostomy and UTI symp
recently took abx intermittently for different reasons, mainly UTI
SEBASTIÁN-likely prerenal, UA UTI sample
cr improving to 1.1
mixed met acidosis-persists at 17, will add po bicarb
monitor UOP, no hydro on CT
BP better, holding parameters for BB
abx per primary and await for cxs
Patient wants to leave, states ostomy output is less, eating full diet
d/w pt
-
-
Date of Service: July 20, 2024
CC / HPI / ROS
-
Chief Complaint:
SEBASTIÁN, met acidosis
History of Present Illness:
cr better at 1.1, k low 3.5
Persistent met acidosis, bicarb 17
BP stable
U cx mixed alex
Review of Systems:
increased out put still
no abd pian
dysuria
no n/v
Weight up
Labs
-
Labs:
WBC 5.2 10^3/uL (4.8-10.8) 07/20/24 08:02
RBC 4.32 10^6/uL (4.20-5.40) 07/20/24 08:02
Hgb 13.2 g/dL (12.0-16.0) 07/20/24 08:02
Hct 38.0 % (37.0-47.0) 07/20/24 08:02
Plt Count 148 10^3/uL (130-400) 07/20/24 08:02
Sodium 138 mmol/L (135-145) 07/20/24 08:02
Potassium 3.5 mmol/L (3.5-5.1) 07/20/24 08:02
Chloride 109 mmol/L (98-107) H 07/20/24 08:02
Carbon Dioxide 17 mmol/L (22-30) L 07/20/24 08:02
BUN 23 mg/dl (7-17) H 07/20/24 08:02
Creatinine 1.1 mg/dL (0.6-1.0) H 07/20/24 08:02
eGFR 50.17 07/20/24 08:02
Glucose 114 mg/dl (70-99) H 07/20/24 08:02
Calcium 9.6 mg/dl (8.4-10.2) 07/20/24 08:02
Albumin 3.2 g/dl (3.5-5.0) L 07/19/24 07:26
Physical Exam
-
Vital Signs:
Vital Signs
Temp Pulse Resp BP Pulse Ox
97.7 F 74 20 126/65 98
07/20/24 06:48 07/20/24 09:07 07/20/24 06:48 07/20/24 09:07 07/20/24 06:48
Cardiovascular:: Regular rate and rhythm
Respiratory:: Bilateral: CTA
Lung Excursion:: Normal
Abdomen:: Nontender and Soft
Extremity Edema:: None: Bilateral:
Cuevas Catheter: No
--- NOTE | 2024-07-20 14:28 | CM ---
Chart reviewed. [facility]
Plan of care ongoing
Nephrology following
Current w/ abx
Per PT/OT, no skilled needs at this time
Plan: Home; no anticipated needs when medically stable
[2024-07-20] MEDS: ROCEPHIN 1000 MG IV (15:08)
[2024-07-20] MEDS: STERILE WATER FOR INJECTION 10 ML IV (15:09)
[2024-07-20 15:28] VITALS: BP 128/55
--- NOTE | 2024-07-20 19:37 | W.PN.HOSP.TC ---
Today's Communication/Plan
-
recheck UA
BMP in AM
Assessment / Plan
Assessment / Plan
Sepsis due to UTI:
Continue IV ceftriaxone and would prefer to treat to at least complete 5 days. Has had 3 days, pt still with symptoms, but expressing strong desires to be dc [place]
Add some Pyridium as needed
Urine culture with more than 75K colonies and some contamination but also she has received antibiotics prior and she has indeed urinary symptoms.
Blood cultures no growth
PT OT eval
SEBASTIÁN:
Due to GI losses
Stop IV fluids
Nephrology consult appreciated
Creatinine 2.2-->1.4-->1.1
Diarrhea:
C. difficile negative
Norovirus negative
Salmonella, Campylobacter and Shiga neg
Hypotension:
resolved
Anion gap metabolic acidosis:
On IV bicarb drip on 07/18
Off today
Bicarb 11-->12-->16-->18-->17
recheck tomorrow, consider resumption of NaHCO3
Hyponatremia:
resolved
Continue to monitor
Hypokalemia:
resolved
History of ulcerative colitis with history of total proctocolectomy end ileostomy:
Ostomy nurse follow-up
Hypertension:
Continue her beta-blockers
Hypothyroidism:
Continue levothyroxine 175 mcg p.o. daily
DVT prophylaxis:
Heparin SQ
CODE STATUS:
Full code
Anticipated Discharge: 24 - 48 hours
Subjective/Interval History
-
Date of Service: July 20, 2024
Still with dysuria and feeling needs to urinate
Objective Data
-
Labs:
Laboratory Results
07/20/24
08:02
WBC 5.2
Hgb 13.2
Hct 38.0
Plt Count 148
Sodium 138
Potassium 3.5
Chloride 109 H
Carbon Dioxide 17 L
BUN 23 H
Creatinine 1.1 H
Glucose 114 H
Calcium 9.6
Vital Signs:
Vital Signs
Temp Pulse Resp BP Pulse Ox
98.3 F 67 18 128/55 100
07/20/24 15:28 07/20/24 15:28 07/20/24 15:28 07/20/24 15:28 07/20/24 15:28
I&O
07/19/24 07/20/24 07/21/24
06:59 06:59 06:59
Intake Total 3460 / 3460 1800 / 1800 620 / 620
Output Total 1225 / 1225 3800 / 3800
Balance 2235 / 2235 -1999 / -2000 620 / 620
Review of Systems
-
History Source: Patient
Constitutional: Denies Fever
Respiratory: Reports No Symptoms
Cardiac: Reports No Symptoms
Abdomen/GI: Reports No Symptoms
Genitourinary: Reports Dysuria, Frequency and Urgency
Neuro: Reports No Symptoms
Physical Exam
-
General: Well Developed, Well Nourished and No Apparent Distress
HEENT: Atraumatic and Moist Mucous Membranes
Respiratory: Clear to Auscultation; Negative Wheezes, Rales or Rhonchi
Cardiac: Regular Rhythm and S1/S2
GI: Soft, Nontender, Nondistended, Normal Bowel Sounds and Ostomy (pt has had for 25 yrs)
Musculoskeletal: No Clubbing, No Cyanosis and No Edema
Neuro: Awake and Alert
[2024-07-20 23:55] VITALS: BP 132/69
[2024-07-21] MEDS: SYNTHROID 175 MCG PO (05:31)
[2024-07-21 06:00] VITALS: BMI 29.8
[2024-07-21 06:09] LABS: Urine Albumin Negative (Neg - Trace); Urine Bilirubin Negative (Negative); Urine Character Clear (Clear); Urine Color Yellow; Urine Glucose Negative (Negative); Urine Ketone Negative (Negative); Urine Leukocyte 1+ (Negative); Urine Nitrite Negative (Negative); Urine Occult Blood Negative (Negative); Urine Specific Gravity 1.015 (<1.030); Urine Urobilinogen Negative (Neg - 1+)
[2024-07-21 07:07] LABS: Urine Red Blood Cell 0-2 /HPF (0-2); Urine White Cell 21-25 /HPF (0-5)
[2024-07-21 07:40] VITALS: BP 124/68
[2024-07-21] MEDS: TOPROL XL 50 MG PO (08:59)
[2024-07-21] MEDS: SODIUM BICARBONATE 650 MG PO ×2 (08:59→17:04)
[2024-07-21] MEDS: Pyridium 100 MG PO ×2 (09:07→20:09)
[2024-07-21 09:40] LABS: Blood Urea Nitrogen 20 mg/dl (7-17); Carbon Dioxide 15 mmol/L (22-30); Chloride 108 mmol/L (98-107); Estimated Creatinine Clearance 39 ml/min; Glucose 112 mg/dl (70-99); Potassium 3.9 mmol/L (3.5-5.1); Sodium 137 mmol/L (135-145); eGFR 56.25
[2024-07-21] MEDS: ROCEPHIN 1000 MG IV (13:37)
[2024-07-21] MEDS: STERILE WATER FOR INJECTION 10 ML IV (13:38)
[2024-07-21 15:16] VITALS: BP 117/55
--- NOTE | 2024-07-21 15:57 | PN.CDI ---
CDI
- -
CDI:
Physician Documentation Request
Admit Date: 07/17/24 23:38
Dear Doctor Jacqueline,
Please review the following and provide your response in the progress notes.
Clinical Indicators:
ED, 07/17
#Metabolic acidosis, increased anion gap (IAG)
PN, 07/20
#Sepsis due to UTI:
#Continue IV ceftriaxone and would prefer to treat to at least complete 5 days.
#...Has had 3 days, pt still with symptoms, but expressing strong desires to be dc....
#Urine culture with more than 75K colonies and some contamination
#...but also she has received antibiotics prior and she has indeed urinary symptoms.
#Blood cultures no growth
07/17, Initial VS:
97.7 86 16 143/65 99%
Laboratory Tests
07/17/24 07/18/24 07/19/24
18:36 06:37 07:26
WBC 8.3 5.6 4.6 L
07/20/24
08:02
WBC 5.2
Based on the above and your clinical assessment, please clarify which of the following most accurately describes the status of the patient's infection on admission:
Sepsis
- Systemic manifestations of infection, with 2 or more SIRS criteria which include:
- Fever >100.4 degrees F or hypothermia < 96.8 degrees F
- Leukocytosis - WBC > 12,000 or leukopenia - WBC < 4,000 or > 10% bands
- Tachycardia > 90 beats per minute
- Tachypnea - RR > 20 breaths per minute or PaCO2 , 32mmHg
Source: Merck Manual 2013
- Indicate the known or suspected underlying infection, such as UTI, pneumonia...
Localized Infection Only, Without Systemic Illness
- indicate the site/source, such as UTI, pneumonia etc.
Other(please specify)
Use of terms such as suspected, likely, concern for, or probable (associated with a specific diagnosis that is being evaluated, monitored, or treated as if it exists) are acceptable and can be coded in the inpatient setting, when documented at the
time of discharge.
Thank you,
Ofelia Farrell RN BSN CCDS
CDI Specialist
please contact via tiger text
Please use your independent medical judgment in providing your response.
--- NOTE | 2024-07-21 18:23 | W.PN.HOSP.TC ---
Today's Communication/Plan
-
increase NaHCO3 to 1300 mg bid
Assessment / Plan
Assessment / Plan
Sepsis due to UTI:
Continue IV ceftriaxone and would prefer to treat to at least complete 5 days. Has had 4 days, pt still with symptoms, but expressing strong desires to be dc [place]
Added Pyridium as needed
Urine culture with more than 75K colonies and some contamination but also she has received antibiotics prior and she has indeed urinary symptoms.
Blood cultures no growth
PT OT eval
Repeat UA with 21-25 WBC, but no bact
Plan is to complete abx tomorrow, assuming feels well enough will dc her. Will need repeat UA after 1 week. Consider eval by [employer] (Julisa Mcmahan) for possible cysto (?interstitial cystitis) if symptoms persist
SEBASTIÁN:
Due to GI losses
Stop IV fluids
Nephrology consult appreciated
Creatinine 2.2-->1.4-->1.1-->1.0
Diarrhea:
C. difficile negative
Norovirus negative
Salmonella, Campylobacter and Shiga neg
Hypotension:
resolved
Anion gap metabolic acidosis:
On IV bicarb drip on 07/18
Off today
Bicarb 11-->12-->16-->18-->17-->[address] Clement, will increase NaHCO3 to 1300 mg bid
Hyponatremia:
resolved
Continue to monitor
Hypokalemia:
resolved
History of ulcerative colitis with history of total proctocolectomy end ileostomy:
Ostomy nurse follow-up
Hypertension:
Continue her beta-blockers
Hypothyroidism:
Continue levothyroxine 175 mcg p.o. daily
DVT prophylaxis:
Heparin SQ
CODE STATUS:
Full code
Anticipated Discharge: 24 - 48 hours
Subjective/Interval History
-
Date of Service: July 21, 2024
Asking when she can go home, but still with bladder discomfort
Objective Data
-
Labs:
Laboratory Results
07/21/24
08:12
Sodium 137
Potassium 3.9
Chloride 108 H
Carbon Dioxide 15 L
BUN 20 H
Creatinine 1.0
Glucose 112 H
Calcium 10.0
Vital Signs:
Vital Signs
Temp Pulse Resp BP Pulse Ox
98.1 F 68 22 117/55 98
07/21/24 15:16 07/21/24 15:16 07/21/24 15:16 07/21/24 15:16 07/21/24 15:16
I&O
07/20/24 07/21/24 07/22/24
06:59 06:59 06:59
Intake Total 1800 / 1800 620 / 620 600 / 600
Output Total 3800 / 3800 2625 / 2625
Balance -1999 / -1999 -2004 / -2004 600 / 600
Review of Systems
-
History Source: Patient
Constitutional: Denies Fever
Respiratory: Reports No Symptoms
Cardiac: Reports No Symptoms
Abdomen/GI: Reports No Symptoms
Genitourinary: Reports Dysuria, Frequency and Urgency
Neuro: Reports No Symptoms
Physical Exam
-
General: Well Developed, Well Nourished and No Apparent Distress
HEENT: Atraumatic and Moist Mucous Membranes
Respiratory: Clear to Auscultation; Negative Wheezes, Rales or Rhonchi
Cardiac: Regular Rhythm and S1/S2
GI: Soft, Nontender, Nondistended, Normal Bowel Sounds and Ostomy (pt has had for 25 yrs)
Musculoskeletal: No Clubbing, No Cyanosis and No Edema
Neuro: Awake and Alert
[2024-07-21] MEDS: SODIUM BICARBONATE 1300 MG PO (20:07)
[2024-07-21 23:46] VITALS: BP 133/67
[2024-07-22] MEDS: SYNTHROID 175 MCG PO (05:57)
[2024-07-22 06:17] VITALS: BMI 29.7
[2024-07-22 07:04] VITALS: BP 109/63
[2024-07-22] MEDS: TOPROL XL 50 MG PO (08:48)
[2024-07-22] MEDS: SODIUM BICARBONATE 1300 MG PO (08:49)
[2024-07-22 09:47] LABS: Blood Urea Nitrogen 21 mg/dl (7-17); Calcium 10.1 mg/dl (8.4-10.2); Carbon Dioxide 12 mmol/L (22-30); Chloride 109 mmol/L (98-107); Estimated Creatinine Clearance 39 ml/min; Glucose 121 mg/dl (70-99); Potassium 4.1 mmol/L (3.5-5.1); Sodium 136 mmol/L (135-145); eGFR 56.25
--- NOTE | 2024-07-22 10:20 | W.PN.HOSP.TC ---
Today's Communication/Plan
-
dc now
Assessment / Plan
Assessment / Plan
Localized Infection Only, Without Systemic Illness due to UTI:
Continue IV ceftriaxone and would prefer to treat to at least complete 5 days. Will give final dose today early at allow to be dc as she is expressing strong desires to be dc [facility]
Added Pyridium as needed
Urine culture with more than 75K colonies and some contamination but also she has received antibiotics prior and she has indeed urinary symptoms.
Blood cultures no growth
PT OT eval
Repeat UA with 21-25 WBC, but no bact
If symptoms persist and repeat UA is negative then Consider eval by [facility] (Julisa Mcmahan) for possible cysto (?interstitial cystitis) if symptoms persist
SEBASTIÁN:
Due to GI losses
Stop IV fluids
Nephrology consult appreciated
Creatinine 2.2-->1.4-->1.1-->1.0-->1.0
Diarrhea:
C. difficile negative
Norovirus negative
Salmonella, Campylobacter and Shiga neg
chronic ostomy
Hypotension:
resolved
Anion gap metabolic acidosis:
On IV bicarb drip on 07/18
Off today
Bicarb 11-->12-->16-->18-->17-->15-->[address] Hernandez, will increase NaHCO3 to 1300 mg tid. Will need recheck post dc, unclear as to why she remains acidotic, but he does not believe pt must stay in hospital
Hyponatremia:
resolved
Continue to monitor
Hypokalemia:
resolved
History of ulcerative colitis with history of total proctocolectomy end ileostomy:
Ostomy nurse follow-up
Hypertension:
Continue her beta-blockers
Hypothyroidism:
Continue levothyroxine 175 mcg p.o. daily
DVT prophylaxis:
Heparin SQ
CODE STATUS:
Full code
reviewed with at bedside and RN. Will give Rocephin now and dc to follow
More than 30 minutes spent in discharge including
Final examination of the patient
Summarizing hospital stay
Instructions for continuing care to all relevant caregivers
Preparation of discharge records, prescriptions, and referral forms
Total time spent (in minutes):
45
see dictated note
Anticipated Discharge: Today
Subjective/Interval History
-
Date of Service: July 22, 2024
Anxiously awaiting dc
Objective Data
-
Labs:
Laboratory Results
07/22/24
08:28
Sodium 136
Potassium 4.1
Chloride 109 H
Carbon Dioxide 12 L*
BUN 21 H
Creatinine 1.0
Glucose 121 H
Calcium 10.1
Vital Signs:
Vital Signs
Temp Pulse Resp BP Pulse Ox
97.5 F 68 20 111/64 96
07/22/24 07:04 07/22/24 07:04 07/22/24 07:04 07/22/24 08:48 07/22/24 07:04
I&O
07/21/24 07/22/24 07/23/24
06:59 06:59 06:59
Intake Total 620 / 620 600 / 600
Output Total 2625 / 2625
Balance -2004 / 600 / 600
Review of Systems
-
History Source: Patient
Constitutional: Denies Fever
Respiratory: Reports No Symptoms
Cardiac: Reports No Symptoms
Abdomen/GI: Reports No Symptoms
Genitourinary: Reports Dysuria, Frequency and Urgency
Neuro: Reports No Symptoms
Physical Exam
-
General: Well Developed, Well Nourished and No Apparent Distress
HEENT: Atraumatic and Moist Mucous Membranes
Respiratory: Clear to Auscultation; Negative Wheezes, Rales or Rhonchi
Cardiac: Regular Rhythm and S1/S2
GI: Soft, Nontender, Nondistended, Normal Bowel Sounds and Ostomy (pt has had for 25 yrs)
Musculoskeletal: No Clubbing, No Cyanosis and No Edema
Neuro: Awake and Alert
[2024-07-22 10:50] VITALS: BP 121/62
[2024-07-22] MEDS: ROCEPHIN 1000 MG IV (10:51)
[2024-07-22] MEDS: STERILE WATER FOR INJECTION 10 ML IV (10:51)
--- NOTE | 2024-07-22 11:20 | CM ---
Chart reviewed. Pt to d/c today
IMM unable to be reviewed w/ pt
No CM needs identified at this time
Plan: Return to [place]; no needs
--- NOTE | 2024-07-22 12:38 | W.DS.TRANS ---
DC Summary - Director Zone
-
Discharge Instructions:
Discharge Diagnosis/Procedures Acute Kidney Failure, UTI, Electrolyte
Abnormalities
Diet Regular
Activity No strenuous activity
Driving Restrictions Not until seen by your Dr
Bathing Restrictions None
Blood Work CBC, BMP, Urine with C&S in 7-10 days
Instructions:
Stand-Alone Forms:
Changes to Home Medications: Yes
Discharge Medications:
DC Medications w/original date entered in [facility]
levothyroxine 175 mcg tablet 175 mcg PO DAILY Thyroid 04/03/18
metoprolol succinate 25 mg tablet,extended release 24 hr (Toprol XL) 50 mg PO DAILY Blood pressure 04/18/21
ergocalciferol (vitamin D2) 1,250 mcg (50,000 unit) capsule (Vitamin D2) 1,250 mcg PO FR Supplement 05/05/24
ferrous sulfate 325 mg (65 mg iron) tablet 325 mg PO DAILY #30 tabs 05/12/24
phenazopyridine 100 mg tablet 100 mg PO TIDPRN PRN dysuria #0 tabs 07/22/24
sodium bicarbonate 650 mg tablet 1,300 mg (2 x 650 mg) PO TID #90 tabs 07/22/24
Home Medication Changes
NaHCO3 added
Pyridium prn added
Pending Results: No
== END 2024-07-22 11:13 | disposition home or self-care (01) | DRG 690 ==
LOC: 4 EAST ACU 23:38
PROVIDERS: Hospitalist; Registered Nurse; Specialist; ADMITTING PHYSICIAN Internal Medicine; ATTENDING PHYSICIAN Internal Medicine; CONSULT PHYSICIAN Internal Medicine; EMERGENCY PHYSICIAN Emergency Medicine; FAMILY PHYSICIAN Internal Medicine
DX: N39.0 Urinary tract infection, site not specified (principal); N17.9 Acute kidney failure, unspecified; E87.1 Hypo-osmolality and hyponatremia; E87.20 Acidosis, unspecified; E87.6 Hypokalemia; I10 Essential (primary) hypertension; E03.9 Hypothyroidism, unspecified; Z93.2 Ileostomy status
CPT/HCPCS: 51798; 74176; 80048; 80053; 81003; 81015; 82728; 83605; 83735; 84443; 85025; 85027; 87040; 87045; 87046; 87086; 87324; 87427; 87449; 87798; 96360; 97162; 97166; 99285; J7030

== ENCOUNTER 2024-09-03 19:27 | Inpatient (IN) | payer MEDICARE, SELFPAY ==
[2024-09-03 14:40] VITALS: BP 114/72
[2024-09-03 14:59] LABS: % Basophils 0.4 % (0-2); % Eosinophils 1.4 % (0-6); % Immature Granulocytes 0.6 % (0-0.5); % Lymphocytes 11.1 % (20.5-51.1); % Monocytes 11.6 % (1.7-9.3); % Neutrophils 74.9 % (42.2-75.2); Absolute Eosinophils 0.1 10^3/uL (0-0.7); Absolute Lymphocytes 0.8 10^3/uL (1.2-3.4); Absolute Monocytes 0.8 10^3/uL (0.1-0.6); Absolute Neutrophils 5.4 10^3/uL (1.4-6.5); Hematocrit 42.6 % (37.0-47.0); Hemoglobin 14.7 g/dL (12.0-16.0); Mean Corp Hgb Conc. 34.5 g/dL (33.0-37.0); Mean Corpuscular Hgb 31.5 pg (27.0-31.0); Mean Corpuscular Volume 91.2 fL (81.0-99.0); Mean Platelet Volume 10.2 fL (7.4-10.4); Nucleated Red Blood Cells % 0 %; Platelet Count 194 10^3/uL (130-400); Red Blood Cell Count 4.67 10^6/uL (4.20-5.40); Red Cell Dist. Width 16.3 % (11.5-14.5); White Blood Cell Count 7.1 10^3/uL (4.8-10.8)
[2024-09-03 15:28] LABS: ALT (SGPT) 50 U/L (0-35); AST (SGOT) 53 U/L (14-36); Albumin 4.2 g/dl (3.5-5.0); Alkaline Phosphatase 158 U/L (38-126); Blood Urea Nitrogen 56 mg/dl (7-17); Calcium 10.1 mg/dl (8.4-10.2); Carbon Dioxide 14 mmol/L (22-30); Chloride 101 mmol/L (98-107); Glucose 125 mg/dl (70-99); Lipase 161 U/L (23-300); Sodium 131 mmol/L (135-145); Total Bilirubin 1.3 mg/dl (0.2-1.3); Total Protein 6.8 g/dl (6.3-8.2); eGFR 15.68
--- NOTE | 2024-09-03 18:25 | ED.GENMED ---
History of Present Illness
General
Chief Complaint: Dehydration Symptoms
Source: patient and records
Time Seen by Provider: 09/03/24 18:12
History of Present Illness
History of Present Illness:
83-year-old female with past medical history of celiac disease, ulcerative colitis status post colostomy, previous acute renal injury secondary to dehydration presents to the emergency department at request of primary doctor for evaluation with
concern for dehydration, electrolyte derangement and possible acute kidney injury due to the patient experiencing nausea vomiting and diarrhea intermittently over the last 2 weeks. Patient states that her symptoms seem to have gotten better until
about 2 days ago and then started eating more solid foods but after starting to eat the solid food proceeded to have vomiting again. Patient notes she is still having frequent liquidy stools within her ostomy. No fevers, chills, rigors. She does
note some generalized fatigue. She does note she had been on antibiotics at the end of April and at the beginning of May due to a hip surgery. No other concerns and she denies any abdominal pain at this time.
Past History
Past History
ED Past Medical History: HTN, Hypothyroidism, Other (Lymphedema) and Other (Anemia, irritable bowel, Perforated diverticulitis, ulcerative colitis, celiac disease, hidradenitis status post radiation therapy )
ED Past Surgical History: Appendectomy, Bowel resection, Cholecystectomy, Gynecological (Left falopian tube removed), Orthopedic (L hip replaced 05/11/24), Tonsilectomy and Other (Total Proctocolectomy with Ileostomy, numerous skin grafts)
Social History
Tobacco: Non-smoker
Alcohol: Daily (Adele 1-2 glasses)
Drug: None
Personal:
Living: with family
Employment: Not employed
Family History
Family History: Other (Noncontributory)
Review of Systems
Review of Systems
All Other Systems: ROS reviewed and negative except as documented in HPI and ROS
Phy Exam
Physical Exam
Physical Exam:
GENERAL: Alert , in no apparent distress
EYE: clear conjunctiva b/l
HEAD: NCAT
ENT: o/p clr, mmm.
CARDIAC: Regular rate and rhythm .
LUNGS: Clear breath sounds bilaterally, no acute respiratory distress, no wheezes/rales/rhonchi
ABDOMEN: Soft, without focal tenderness, no r/g, no cvat, ostomy to right mid abdomen
NEUROLOGICAL: Alert and oriented
SKIN: Warm and dry, skin intact.
MUSCULOSKELETAL: No edema, well perfused.
PSYCH: Normal and appropriate interaction.
Scores
Heart Failure Risk
Heart Failure Risk Score: Not Applicable
Heart Score for Chest Pain Patients
STEMI patient?: Not applicable
Withdrawal Assessment of Alcohol
Withdrawal Assessment Completed?: Not applicable
Course
Orders/Labs/Results
Orders:
Orders
09/03/24 14:51
Complete Blood Count/With Diff Urgent
Comprehensive Metabolic Panel Urgent
Lipase Urgent
09/03/24 18:19
STOOL [C difficile Antigen & Toxins] Urgent
CHANDANA Source: Feces/Stool
Specimen Description:
Stool Culture Urgent
CHANDANA Source: Feces/Stool
Specimen Description:
Lactated Ringers [Lr] 1,000 ml IV BOLUS
09/03/24 18:23
Electrocardiogram (*1) Urgent
Reason for Study: Other
Other Reason for Exam: renal failure
EKG- Treatment ONCE
Urinalysis Reflex To Culture Urgent
Abnormal Lab Results
09/03/24
14:51
MCH 31.5 H pg
(27.0-31.0)
RDW 16.3 H %
(11.5-14.5)
Absolute Lymphs (auto) 0.8 L 10^3/uL
(1.2-3.4)
Absolute Monos (auto) 0.8 H 10^3/uL
(0.1-0.6)
Immature Gran % 0.6 H %
(0-0.5)
Lymphocytes % 11.1 L %
(20.5-51.1)
Monocytes % 11.6 H %
(1.7-9.3)
Sodium 131 L mmol/L
(135-145)
Carbon Dioxide 14 L* mmol/L
(22-30)
BUN 56 H mg/dl
(7-17)
Creatinine 2.9 H mg/dL
(0.6-1.0)
Glucose 125 H mg/dl
(70-99)
AST 53 H U/L
(14-36)
ALT 50 H U/L
(0-35)
Alkaline Phosphatase 158 H U/L
(38-126)
09/03/24 14:51
09/03/24 14:51
Vital Signs
Initial and Last Documented VS:
Initial Vital Signs
Temp Pulse Resp BP Pulse Ox
97.8 F 88 18 114/72 98
09/03/24 14:40 09/03/24 14:40 09/03/24 14:40 09/03/24 14:40 09/03/24 14:40
Last Documented Vital Signs
Temp Pulse Resp BP Pulse Ox
97.8 F 88 18 117/66 96
09/03/24 14:40 09/03/24 14:40 09/03/24 14:40 09/03/24 18:31 09/03/24 18:31
MDM/Problems Addressed
Differential Diagnosis Includes:
Infectious diarrhea, bowel obstruction, dehydration, electrolyte derangement, less concern for an acute surgical abdomen
MDM/Problems Addressed:
83-year-old female presenting to the emergency department for evaluation at request of her primary care provider due to persistent nausea vomiting and diarrhea. History of similar requiring admission with IV fluids in the past due to acute kidney
injury and metabolic acidosis. Labs were initiated in triage which confirms suspicion for acute kidney injury and a metabolic acidosis. Patient has a mild transaminitis which is right around baseline for her. Her abdomen is otherwise soft without
any tenderness. She is afebrile and no leukocytosis. Will plan for admission for IV fluids and close monitoring of patient's renal function.
Chronic conditions affecting care: Kidney disease
Acute Exacerbation and/or Progression of Chronic Illness: Kidney disease
*Pulse Oximetry
Patient hypoxic: no
*Critical Care Note
Total Time (30-74mins, 75-104mins- exclusive of procedures): Not Applicable
Data Reviewed
Review of Other/Old Records Reveals: Labs and Records
Source: patient and records
Patient Management
Discussion with other providers: Hospitalist
Escalation/DeEscalation of care consider admission/obs:
Hospitalist team accepts for continued evaluation and treatment
ED Attending Note
-
Portions of this chart may have been created with voice recognition software.� Occasional wrong word or��sound alike� substitutions may have occurred due to the inherent limitations of voice recognition software.
Discharge Plan
Departure
Patient Disposition: Admit
Date of Disposition: 09/03/24
Time of Disposition: 18:25
Presentation/result/management discussed w/ accepting MD/DO: Hospitalist
Discharge Problem:
Diarrhea, Nausea and vomiting, SEBASTIÁN (acute kidney injury)
Prescriptions:
No Action
levothyroxine 175 MCG tablet
175 mcg PO DAILY
metoprolol succinate [Toprol XL] 25 MG tablet extended release 24 hr
50 mg PO DAILY
ergocalciferol (vitamin D2) [Vitamin D2] 1,250 mcg (50,000 unit) Capsule
1,250 mcg PO FR
ferrous sulfate 325 mg (65 mg iron) tablet
325 mg PO DAILY Qty: 30 0RF
Rx Instructions:
Over the counter.
sodium bicarbonate 650 mg Tablet
1,300 mg PO TID Qty: 90 0RF
Rx Instructions:
continue until told by physician okay to stop
phenazopyridine 100 mg Tablet
100 mg PO TIDPRN PRN (Reason: dysuria) Qty: 0 0RF
Interventions
Interventions:
*Risk Screen - Suicide Last Done: 09/03/24 14:40
*General Assessment Last Done: 09/03/24 14:40
*ED COVID-19 Vaccine History Last Done: 09/03/24 14:40
Discharge Date and Time
Print Language: FAROESE
[2024-09-03 18:31] VITALS: BP 117/66
[2024-09-03 18:32] VITALS: BMI 28.3
[2024-09-03] MEDS: LR 1000 IV ×2 (18:42→23:01)
--- NOTE | 2024-09-03 18:59 | HPS.HSE ---
Family Physician
-
Family Physician:
Chief Complaint
-
diarrhea and vomiting
History of Present Illness
83-year-old female past medical history of hypertension, hypothyroidism, ulcerative colitis status post total proctocolectomy, ileostomy vomiting and diarrhea for the past 15 days. Vomiting stopped a few days ago. Continues to have watery
diarrhea. Denies any significant abdominal pain. She has been having chills. Denies urinary symptoms.
Patient was recently admitted last month for similar presentation.
She last had prophylactic antibiotics in April after hip surgery.
Has alcohol occasionally. Denies smoking.
Medical History
Past Medical History
Past Medical History: Reports Other (hypertension, hypothyroidism, ulcerative colitis status post total proctocolectomy, ileostomy)
Past Surgical History: Reports Other (Appendectomy, Bowel resection, Cholecystectomy, Gynecological (Left falopian tube removed), Orthopedic (L hip replaced 05/11/24), Tonsilectomy and Other (Total Proctocolectomy with Ileostomy, numerous skin
grafts))
Social History
Tobacco: Non-smoker
Alcohol: Occasional
Drug: None
Family History
Family History: Not pertinent
Allergies / Home Medications
Allergies reflects when Allergies were last updated in [employer].
Home Medications with original date entered in [employer]
Allergy/Medication List:
Allergies
Allergy/AdvReac Type Severity Reaction Status Date / Time
adhesive Allergy Rash, ITCHY Verified 09/03/24 14:45
cephalexin monohydrate Allergy diarrhea Verified 09/03/24 14:45
[From [employer]]
gluten Allergy has celiac Verified 09/03/24 14:45
disease
galidium Allergy red rash Uncoded 09/03/24 14:45
Home Medications
levothyroxine 175 mcg tablet 175 mcg PO DAILY Thyroid 04/03/18
ergocalciferol (vitamin D2) 1,250 mcg (50,000 unit) capsule (Vitamin D2) 1,250 mcg PO FR Supplement 05/05/24
acetaminophen 500 mg tablet (Tylenol Extra Strength) 500 mg PO BIDPRN PRN mild pain 09/03/24
diphenhydramine HCl 50 mg capsule (Sleep Aid (diphenhydramine)) 50 mg PO HSPRN PRN sleep 09/03/24
metoprolol succinate 50 mg tablet,extended release 24 hr 50 mg PO DAILY 09/03/24
Review of Systems
-
History Source: Patient
A 12 point ROS was completed and negative except as noted: Yes
Constitutional: Reports No Symptoms
EENT: Reports No Symptoms
Respiratory: Reports No Symptoms
Cardiac: Reports No Symptoms
Abdomen/GI: Reports See HPI
: Reports No Symptoms
Musculoskeletal: Reports No Symptoms
Skin: Reports No Symptoms
Neurological: Reports No Symptoms
Endocrine: Reports No Symptoms
Hematologic/Lymphatic: Reports No Symptoms
Psych: Reports No Symptoms
Physical Exam
Vital Signs
Vital Signs
Temp Pulse Resp BP Pulse Ox
97.8 F 88 18 117/66 97
09/03/24 14:40 09/03/24 14:40 09/03/24 14:40 09/03/24 18:31 09/03/24 18:45
Physical Exam
General: Well Developed, Well Nourished and No Apparent Distress
HEENT: NormoCephalic, Moist mucous membranes and Atraumatic
Respiratory: Clear
Cardiac: S1/S2 and Regular Rhythm; No Murmur or Rub
GI: Soft, Non Tender, Non Distended and Normal Bowel Sounds; No Organomegaly
Rectal: Deferred by Provider
Musculoskeletal: No Clubbing, No Cyanosis and No Edema
Skin: No Rash
Neuro: Nonfocal/grossly intact
Laboratory Results
-
09/03/24 14:51
09/03/24 14:51
Laboratory Results
Total Bilirubin 1.3 mg/dl (0.2-1.3) 09/03/24 14:51
AST 53 U/L (14-36) H 09/03/24 14:51
ALT 50 U/L (0-35) H 09/03/24 14:51
Alkaline Phosphatase 158 U/L (38-126) H 09/03/24 14:51
Lipase 161 U/L (23-300) 09/03/24 14:51
Data Reviewed
-
Lab Data: Labs Reviewed by me
Old Records: Reviewed
Impression/Plan
-
IMPRESSION:
PLAN:
# Acute gastroenteritis
-Check stool culture, C. difficile, norovirus
-IV fluids
-Clear liquid diet
# SEBASTIÁN secondary to prerenal GI losses
# Anion gap metabolic acidosis secondary to diarrhea
-Creatinine of 2.9
-IV fluids with lactated Ringer's
-Add sodium bicarbonate daily
Essential hypertension
-Continue metoprolol
Hypothyroidism
-Continue levothyroxine
Ulcerative colitis status post total proctocolectomy end ileostomy
DNR/DNI
DVT prophylaxis�heparin
Clear liquid diet
[2024-09-03 19:00] VITALS: BP 116/66
[2024-09-03] MEDS: SODIUM BICARBONATE 650 MG PO (19:37)
[2024-09-03] MEDS: FLUSH (NSS) 1 FLUSH IV (19:40)
[2024-09-03 21:22] VITALS: BP 157/76
[2024-09-03 21:26] VITALS: BMI 28.1
[2024-09-03 21:50] LABS: Urine Albumin Trace (Neg - Trace); Urine Bilirubin Negative (Negative); Urine Character Clear (Clear); Urine Color Yellow; Urine Glucose Negative (Negative); Urine Ketone Negative (Negative); Urine Leukocyte Trace (Negative); Urine Nitrite Negative (Negative); Urine Occult Blood Negative (Negative); Urine Urobilinogen Negative (Neg - 1+)
[2024-09-03 22:12] LABS: Urine Bacteria Few (Negative); Urine Red Blood Cell 0-2 /HPF (0-2)
[2024-09-03 23:26] VITALS: BP 107/61
[2024-09-04] MEDS: SYNTHROID 175 MCG PO (05:54)
[2024-09-04] MEDS: BENADRYL 25 MG PO (05:54)
[2024-09-04 06:50] LABS: % Basophils 0.8 % (0-2); % Eosinophils 4.8 % (0-6); % Immature Granulocytes 0.6 % (0-0.5); % Lymphocytes 17.5 % (20.5-51.1); % Monocytes 11.9 % (1.7-9.3); % Neutrophils 64.4 % (42.2-75.2); Absolute Eosinophils 0.3 10^3/uL (0-0.7); Absolute Lymphocytes 0.9 10^3/uL (1.2-3.4); Absolute Monocytes 0.6 10^3/uL (0.1-0.6); Absolute Neutrophils 3.4 10^3/uL (1.4-6.5); Hematocrit 36.6 % (37.0-47.0); Hemoglobin 12.5 g/dL (12.0-16.0); Mean Corp Hgb Conc. 34.2 g/dL (33.0-37.0); Mean Corpuscular Hgb 30.9 pg (27.0-31.0); Mean Corpuscular Volume 90.6 fL (81.0-99.0); Mean Platelet Volume 10.4 fL (7.4-10.4); Nucleated Red Blood Cells % 0 %; Platelet Count 148 10^3/uL (130-400); Red Blood Cell Count 4.04 10^6/uL (4.20-5.40); White Blood Cell Count 5.2 10^3/uL (4.8-10.8)
[2024-09-04 07:07] VITALS: BP 117/65
[2024-09-04 07:13] LABS: ALT (SGPT) 45 U/L (0-35); AST (SGOT) 46 U/L (14-36); Albumin 3.2 g/dl (3.5-5.0); Alkaline Phosphatase 165 U/L (38-126); Blood Urea Nitrogen 49 mg/dl (7-17); Calcium 9.6 mg/dl (8.4-10.2); Carbon Dioxide 15 mmol/L (22-30); Chloride 100 mmol/L (98-107); Estimated Creatinine Clearance 17 ml/min; Glucose 92 mg/dl (70-99); Potassium 3.4 mmol/L (3.5-5.1); Sodium 128 mmol/L (135-145); Total Bilirubin 1.4 mg/dl (0.2-1.3); Total Protein 5.6 g/dl (6.3-8.2); eGFR 21.84
[2024-09-04] MEDS: TOPROL XL 50 MG PO (08:25)
[2024-09-04] MEDS: DRISDOL (VITAMIN D2) 50000 UNITS PO (08:25)
[2024-09-04] MEDS: SODIUM BICARBONATE 1300 MG PO (08:25)
[2024-09-04] MEDS: LR 1000 IV ×2 (09:47→19:35)
[2024-09-04] MEDS: KCL 40 MEQ PO (09:52)
[2024-09-04 11:31] VITALS: BP 105/47; PULSE 54; O2SAT 98
--- NOTE | 2024-09-04 13:32 | W.PN.HOSP.TC ---
Today's Communication/Plan
-
Trial regular diet
Start Imodium as needed
Send chronic diarrhea workup (celiac's, stool elastase, stool calprotectin, stool WBC, O&P)
GI consult
Assessment / Plan
Assessment / Plan
#Acute gastroenteritis
#Chronic diarrhea
-Presented with multiple days of nausea and vomiting, also with diarrhea for over a month
-Was discharged from the hospital a month ago with SEBASTIÁN and persistent diarrhea
-C. difficile and norovirus testing negative both then and in the ED yesterday
-Stool culture was negative on last hospital stay, stool culture currently pending here
-Ordered stool fat content, stool elastase, stool WBC, calprotectin, celiac's panel, O&P
-Consider testing for stool osmolar gap if deemed watery diarrhea
-GI consult for further recommendations, may see soon as OP instead if open appointment available
-Monitor symptomatically, start Imodium
#SEBASTIÁN
#AGMA secondary to diarrhea
#Hypovolemic hyponatremia from diarrhea
-Prerenal SEBASTIÁN and acidemia from volume loss of bicarbonate containing fluids through diarrhea
-Also with hyponatremia due to nausea and vomiting as well as diarrhea
-On arrival serum sodium 128, potassium 3.4, bicarb 12, creatinine 2.9
-Clinically improving on IV fluids with bicarbonate supplement
-Trend daily BMP, continue IVF
#Primary hypertension
-Home medications include metoprolol succinate; no first-line agents
-No known history of hypertensive systemic disease
-Blood pressure stable
#Hypothyroidism
-Unclear etiology, home meds include levothyroxine 175 mcg daily
-Added on TSH to rule out thyroid dysfunction as cause of diarrhea
-Otherwise no signs of thyroid dysfunction
#UC s/p proctocolectomy
#S/p end ileostomy
-Had proctocolectomy and end ileostomy at age 59
-Not currently on any immunosuppressive regimen
-Monitor ostomy output
DVT prophylaxis: Subcutaneous
Diet: Regular
CODE STATUS: DNR
Anticipated Discharge: 24 - 48 hours
Subjective/Interval History
-
Date of Service: September 04, 2024
Seen and examined at the bedside. No acute events reported overnight. AFVSS today
Labs improving with IV fluid resuscitation. Creatinine down to 2.2. Patient states she feels better, asking for a full meal
Denies any acute complaints at this time.
Objective Data
-
Labs:
Laboratory Results
09/04/24
06:08
WBC 5.2
Hgb 12.5
Hct 36.6 L
Plt Count 148 D
Sodium 128 L
Potassium 3.4 L
Chloride 100
Carbon Dioxide 15 L
BUN 49 H
Creatinine 2.2 H
Glucose 92
Calcium 9.6
Total Bilirubin 1.4 H
AST 46 H
ALT 45 H
Alkaline Phosphatase 165 H
Vital Signs:
Vital Signs
Temp Pulse Resp BP Pulse Ox
97.6 F 71 16 119/65 97
09/04/24 07:07 09/04/24 08:25 09/04/24 07:07 09/04/24 08:25 09/04/24 13:10
I&O
09/03/24 09/04/24 09/05/24
06:59 06:59 06:59
Intake Total 480 / 480
Output Total 250 / 250
Balance 230 / 230
Review of Systems
-
History Source: Patient
All other systems: Reviewed and negative
Physical Exam
-
General: Well Developed, Well Nourished, No Apparent Distress and Comfortable
HEENT: Normocephalic, Atraumatic, Moist Mucous Membranes and Anicteric
Respiratory: Clear to Auscultation and Non Labored Respirations
Cardiac: Regular Rhythm and S1/S2; Negative Murmur, Rub or Gallop
GI: Soft, Nontender, Nondistended, Normal Bowel Sounds and Ostomy
Musculoskeletal: No Clubbing, No Cyanosis and No Edema
Skin: Warm and Dry; Negative Rash
Neuro: AO x 3 and Nonfocal/Grossly Intact
Psych: Calm
Data Reviewed
-
Labs: Labs Reviewed by me, Discussed with Physician (Gastroenterology) and Discussed with Patient
[2024-09-04 15:17] LABS: TSH 0.07 uIU/ml (0.47-4.68)
[2024-09-04 15:32] VITALS: BP 97/58
--- NOTE | 2024-09-04 17:38 | PTCARENOTE ---
Patient refusing labwork. States she will only allow IV team to do labs. Advised patient that IV team only draws labs from patients with a central line. Advised patient to allow the painter rough to draw the labs. Patient refusing, stating 'only if
she can get it on the first try.' I told patient that I could not promise that. Patient continues refusing lab draw.
[2024-09-04 23:24] VITALS: BP 108/55
[2024-09-05] MEDS: LR 1000 IV ×2 (05:33→16:03)
[2024-09-05] MEDS: SYNTHROID 175 MCG PO (06:41)
[2024-09-05 07:45] VITALS: BP 112/56
[2024-09-05 08:36] LABS: Blood Urea Nitrogen 38 mg/dl (7-17); Calcium 9.4 mg/dl (8.4-10.2); Carbon Dioxide 17 mmol/L (22-30); Chloride 104 mmol/L (98-107); Estimated Creatinine Clearance 25 ml/min; Glucose 81 mg/dl (70-99); Potassium 3.9 mmol/L (3.5-5.1); Sodium 131 mmol/L (135-145); eGFR 34.58
[2024-09-05] MEDS: SODIUM BICARBONATE 1300 MG PO (08:37)
[2024-09-05] MEDS: TOPROL XL 50 MG PO (08:37)
[2024-09-05 09:08] LABS: % Basophils 0.7 % (0-2); % Eosinophils 3.6 % (0-6); % Immature Granulocytes 0.5 % (0-0.5); % Lymphocytes 13.7 % (20.5-51.1); % Monocytes 11.7 % (1.7-9.3); % Neutrophils 69.8 % (42.2-75.2); Absolute Eosinophils 0.2 10^3/uL (0-0.7); Absolute Lymphocytes 0.6 10^3/uL (1.2-3.4); Absolute Monocytes 0.5 10^3/uL (0.1-0.6); Absolute Neutrophils 3.1 10^3/uL (1.4-6.5); Hematocrit 36.3 % (37.0-47.0); Hemoglobin 12.7 g/dL (12.0-16.0); Mean Corpuscular Hgb 31.5 pg (27.0-31.0); Mean Corpuscular Volume 90.1 fL (81.0-99.0); Mean Platelet Volume 10.7 fL (7.4-10.4); Nucleated Red Blood Cells % 0 %; Platelet Count 142 10^3/uL (130-400); Red Blood Cell Count 4.03 10^6/uL (4.20-5.40); Red Cell Dist. Width 15.8 % (11.5-14.5); White Blood Cell Count 4.4 10^3/uL (4.8-10.8)
--- NOTE | 2024-09-05 11:45 | W.PN.HOSP.TC ---
Addendum entered and electronically signed by Lencho Elizabeth DO 09/05/24 13:46:
#Recent UTI
-Some concern for interstitial cystitis, recently discharged on phenazopyridine
-Status post 5-day course of antibiotics on recent admission
-Urine culture from this admission with mixed alex
-Has not complained of any urinary symptoms
-Monitor for symptoms and consider repeat culture
Original Note:
Today's Communication/Plan
-
Reduce levothyroxine
Follow chronic diarrhea lab workup
Continue IV fluids, PO HCO3, trend BMP
Likely discharge tomorrow with OP GI follow-up
Assessment / Plan
Assessment / Plan
#Acute gastroenteritis
#Chronic diarrhea
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
-Presented with multiple days of nausea and vomiting, also with diarrhea for over a month
-Was discharged from the hospital a month ago with SEBASTIÁN and persistent diarrhea
-C. difficile and norovirus testing negative both then and in the ED yesterday
-Stool culture was negative on last hospital stay, repeat currently pending
-Does have low TSH, question overtreatment of hypothyroidism as cause for diarrhea
-Stool O&P for Giardia and Cryptosporidium negative
-F/U stool fat, stool elastase, celiac's panel
-Monitor symptomatically, transition as Imodium from as needed to standing
-Decrease levothyroxine to 125 mcg daily, will need repeat TSH in 4 to 6 weeks
-Has an OP GI appointment on 09/08 at 4 PM
#SEBASTIÁN
#AGMA secondary to diarrhea
#Hypovolemic hyponatremia from diarrhea
-Prerenal SEBASTIÁN and acidemia from volume loss of bicarbonate containing fluids through diarrhea
-Also with hyponatremia due to nausea and vomiting as well as diarrhea
-On arrival serum sodium 128, potassium 3.4, bicarb 12, creatinine 2.9
-Clinically improving on IV fluids with bicarbonate supplement
-Trend daily BMP, continue IVF
#Primary hypertension
-Home medications include metoprolol succinate; no first-line agents
-No known history of hypertensive systemic disease
-Blood pressure stable
#Hypothyroidism
-Unclear etiology, home meds include levothyroxine 175 mcg daily
-TSH came back low at 0.07, suspect overtreatment with current regimen
-Reduce levothyroxine to 125 mcg, repeat TSH in 4 to 6 weeks
#UC s/p proctocolectomy
#S/p end ileostomy
-Had proctocolectomy and end ileostomy at age 59
-Not currently on any immunosuppressive regimen
-Monitor ostomy output
DVT prophylaxis: Subcutaneous
Diet: Regular
CODE STATUS: DNR
Anticipated Discharge: Within 24 hours
Subjective/Interval History
-
Date of Service: September 05, 2024
Seen and examined at the bedside. No acute events reported overnight. AFVSS as of this morning
Renal function improving, creatinine down to 1.5. Patient states she is not having any nausea or vomiting, continues with watery stool output
Denies any new complaints.
Objective Data
-
Labs:
Laboratory Results
09/05/24
07:12
WBC 4.4 L
Hgb 12.7
Hct 36.3 L
Plt Count 142
Sodium 131 L
Potassium 3.9
Chloride 104
Carbon Dioxide 17 L
BUN 38 H
Creatinine 1.5 H
Glucose 81
Calcium 9.4
Vital Signs:
Vital Signs
Temp Pulse Resp BP Pulse Ox
99.0 F 81 18 112/56 96
09/05/24 07:45 09/05/24 07:45 09/05/24 07:45 09/05/24 07:45 09/05/24 07:45
I&O
09/04/24 09/05/24 09/06/24
06:59 06:59 06:59
Intake Total 480 / 480 2600 / 2600
Output Total 250 / 250 1225 / 1225
Balance 230 / 230 1375 / 1375
Review of Systems
-
History Source: Patient
All other systems: Reviewed and negative
Physical Exam
-
General: Well Developed, Well Nourished, No Apparent Distress and Comfortable
HEENT: Normocephalic, Atraumatic, Moist Mucous Membranes and Anicteric
Respiratory: Clear to Auscultation and Non Labored Respirations
Cardiac: Regular Rhythm and S1/S2; Negative Murmur, Rub or Gallop
GI: Soft, Nontender, Nondistended, Normal Bowel Sounds and Ostomy
Musculoskeletal: No Clubbing, No Cyanosis and No Edema
Skin: Warm, Dry and Normal Turgor; Negative Rash
Neuro: AO x 3 and Nonfocal/Grossly Intact
Psych: Calm
[2024-09-05] MEDS: IMODIUM 2 MG PO ×3 (12:07→19:46)
--- NOTE | 2024-09-05 12:41 | CM ---
Reviewed the chart notes and spoke with the patient and her spouse at the bedside. The patient resides with spouse in an independent apartment with elevator access. The patient has available is needed a rolling walker, cane, and bsc. The patient
has had [facility] in the past, but no SNF. The patient confirmed her pharmacy of choice is [facility] and PCP is Braeden Moore. CM continues to be available to patient/family and is monitoring medical plan for needs at discharge.
Plan: Discharge to home when medically stable. No needs anticipated at this time. Patient's spouse will provide transportation home.
[2024-09-05 15:43] VITALS: BP 129/62
[2024-09-05 23:24] VITALS: BP 126/61
[2024-09-05] MEDS: IMODIUM PO (23:54)
[2024-09-06] MEDS: LR 1000 IV ×2 (02:27→12:45)
[2024-09-06] MEDS: IMODIUM PO (04:11)
[2024-09-06] MEDS: SYNTHROID 125 MCG PO (05:45)
[2024-09-06 07:05] VITALS: BP 124/61
[2024-09-06 07:33] LABS: % Basophils 0.5 % (0-2); % Eosinophils 4.5 % (0-6); % Immature Granulocytes 0.8 % (0-0.5); % Lymphocytes 16.8 % (20.5-51.1); % Monocytes 13.3 % (1.7-9.3); % Neutrophils 64.1 % (42.2-75.2); Absolute Eosinophils 0.2 10^3/uL (0-0.7); Absolute Lymphocytes 0.7 10^3/uL (1.2-3.4); Absolute Monocytes 0.5 10^3/uL (0.1-0.6); Absolute Neutrophils 2.6 10^3/uL (1.4-6.5); Hematocrit 37.4 % (37.0-47.0); Hemoglobin 12.8 g/dL (12.0-16.0); Mean Corp Hgb Conc. 34.2 g/dL (33.0-37.0); Mean Corpuscular Hgb 31.5 pg (27.0-31.0); Mean Corpuscular Volume 92.1 fL (81.0-99.0); Mean Platelet Volume 10.6 fL (7.4-10.4); Nucleated Red Blood Cells % 0 %; Platelet Count 142 10^3/uL (130-400); Red Blood Cell Count 4.06 10^6/uL (4.20-5.40); Red Cell Dist. Width 16.1 % (11.5-14.5)
[2024-09-06 07:52] LABS: Blood Urea Nitrogen 30 mg/dl (7-17); Calcium 9.5 mg/dl (8.4-10.2); Carbon Dioxide 19 mmol/L (22-30); Chloride 107 mmol/L (98-107); Estimated Creatinine Clearance 29 ml/min; Glucose 82 mg/dl (70-99); Potassium 4.1 mmol/L (3.5-5.1); Sodium 136 mmol/L (135-145); eGFR 41.06
[2024-09-06] MEDS: SODIUM BICARBONATE 1300 MG PO (08:15)
[2024-09-06] MEDS: IMODIUM 2 MG PO ×2 (08:16→12:41)
[2024-09-06] MEDS: TOPROL XL 50 MG PO (08:16)
--- NOTE | 2024-09-06 12:09 | W.PN.HOSP.TC ---
Addendum entered and electronically signed by Lencho Elizabeth DO 09/06/24 16:16:
>30 minutes required on preparation and planning for discharge
Original Note:
Today's Communication/Plan
-
Follow-up x-ray
Finish bag of IV fluids
Imodium every 4 hours
Levothyroxine 125 mcg daily
OP GI on Saturday
Likely DC today
Assessment / Plan
Assessment / Plan
#Acute gastroenteritis
#Chronic diarrhea
#H/O Celiac's Disease
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
-Presented with multiple days of nausea and vomiting, also with diarrhea for over a month
-Does have low TSH, question overtreatment of hypothyroidism as cause for diarrhea
-Stool O&P for Giardia and Cryptosporidium negative as was stool culture, C. difficile, norovirus
-Monitor symptomatically, continue with Imodium from every 4 hours standing
-Decrease levothyroxine to 125 mcg daily, will need repeat TSH in 4 to 6 weeks
-F/U stool fat, stool elastase
-Gluten-free diet
-Has an OP GI appointment on 09/08 at 4 PM
#SEBASTIÁN
#AGMA secondary to diarrhea
#Hypovolemic hyponatremia from diarrhea
-Prerenal SEBASTIÁN and acidemia from volume loss of bicarbonate containing fluids through diarrhea
-Also with hyponatremia due to nausea and vomiting as well as diarrhea
-On arrival serum sodium 128, potassium 3.4, bicarb 12, creatinine 2.9
-Clinically improving on IV fluids with bicarbonate supplement
-Trend daily BMP, continue IVF while here
-Will need BMP in 1 week after DC
#Primary hypertension
-Home medications include metoprolol succinate; no first-line agents
-No known history of hypertensive systemic disease
-Blood pressure stable
#Hypothyroidism with overtreatment
-Unclear etiology, home meds include levothyroxine 175 mcg daily
-TSH came back low at 0.07, suspect overtreatment with current regimen
-Reduce levothyroxine to 125 mcg, repeat TSH in 4 to 6 weeks
#UC s/p proctocolectomy
#S/p end ileostomy
-Had proctocolectomy and end ileostomy at age 59
-Not currently on any immunosuppressive regimen
-Monitor ostomy output
#Recent UTI
#Concern for interstitial cystitis
-Recently hospitalized with similar issues but also urinary symptoms
-Completed a 5-day course of antibiotics at that time
-Denies any symptoms of urinary infection today
DVT prophylaxis: Subcutaneous
Diet: Regular
CODE STATUS: DNR
Anticipated Discharge: Today
Subjective/Interval History
-
Date of Service: September 06, 2024
Seen and examined at the bedside. No acute events overnight. AFVSS this morning
Renal function improving, patient still with watery stools at times.
As of this morning she mentions foot pain, right sided near the fifth digit, mentions she hit her foot about a week ago. X-ray ordered for completeness, no gross abnormalities on
Denies any other acute complaint
Objective Data
-
Labs:
Laboratory Results
09/06/24
06:47
WBC 4.0 L
Hgb 12.8
Hct 37.4
Plt Count 142
Sodium 136
Potassium 4.1
Chloride 107
Carbon Dioxide 19 L
BUN 30 H
Creatinine 1.3 H
Glucose 82
Calcium 9.5
Vital Signs:
Vital Signs
Temp Pulse Resp BP Pulse Ox
97.8 F 71 16 124/61 99
09/06/24 07:05 09/06/24 07:05 09/06/24 07:05 09/06/24 07:05 09/06/24 07:05
I&O
09/05/24 09/06/24 09/07/24
06:59 06:59 06:59
Intake Total 2600 / 2600 2380 / 2380
Output Total 1225 / 1225 1500 / 1500
Balance 1375 / 1375 880 / 880
Review of Systems
-
History Source: Patient
All other systems: Reviewed and negative
Physical Exam
-
General: Well Developed, Well Nourished, No Apparent Distress and Comfortable
HEENT: Normocephalic, Atraumatic, Moist Mucous Membranes and Anicteric
Respiratory: Clear to Auscultation and Non Labored Respirations
Cardiac: Regular Rhythm and S1/S2; Negative Murmur, Rub or Gallop
GI: Soft, Nontender, Nondistended, Normal Bowel Sounds and Ostomy
Musculoskeletal: No Clubbing, No Cyanosis and No Edema
Skin: Warm, Dry and Normal Turgor; Negative Rash
Neuro: AO x 3 and Nonfocal/Grossly Intact
Psych: Calm
Data Reviewed
-
Labs: Labs Reviewed by me and Discussed with Patient
--- NOTE | 2024-09-06 14:35 | CM ---
IMM reviewed and placed on the chart.
--- NOTE | 2024-09-06 15:00 | W.PN.UPDATE ---
Update Note
Progress Note Update
X-ray of the right foot did show a subacute fifth digit fracture, likely when the patient hit her foot in the preceding week or 2. I spoke with the patient who states she still would like to be discharged. She has an orthopedist as an outpatient
and she says she will schedule follow-up appointment with them. Told her to limit weightbearing on the right foot as possible. Use Tylenol [id number] as needed. Also follow-up with family provider this upcoming week
[2024-09-06 15:15] VITALS: BP 129/65
--- NOTE | 2024-09-06 16:17 | W.DCSUMMARY ---
Discharge Summary
Discharge Data
Date of Admission: 09/03/24
Date of Discharge: 09/06/24
-
Pending Results: Yes
Additional Pending Results:
Fecal elastase, stool fat content
Hospital Course
83-year-old female with ulcerative colitis status post proctocolectomy and end ileostomy, HTN, hypothyroidism, celiac's disease that presented to the hospital with complaint of chronic diarrhea of >over 1 month as well as recent development of
nausea and vomiting. Initial testing for C. difficile and norovirus was unremarkable. Nausea and vomiting quickly improved without diarrhea was fairly persistent. Also found to have SEBASTIÁN with anion gap metabolic acidosis due to diarrhea and
prerenal state. Was started on IV fluids and oral bicarbonate supplementation. Started on Imodium for diarrhea. Sent workup for malabsorptive processes and infectious etiologies for chronic diarrhea. O&P for Giardia and Cryptosporidium was
negative. Stool cultures unremarkable. Was on gluten-free diet here. Spoke with gastroenterology who was able to arrange an outpatient office visit for 09/08/2024 at 4 PM (patient had previous referral but was unable to schedule prior to November).
Renal function improved and she was discharged with a BMP in 1 week and Imodium every 4 hours until seen by GI. Consideration for stool osmolar gap per GI
Of note, her TSH in the hospital was 0.07. Was near normal on recent hospitalization where diarrhea was still persistent. Unclear if this is the etiology for her diarrhea though not impossible. Reduced her levothyroxine from 175 mcg to 125 mcg.
Should follow for symptomatic improvement. Will need to repeat TSH and reflex T4 in 4 to 6 weeks after discharge.
On day of discharge she mentioned pain in her fifth digit of the right foot. Mentioned that she hit her foot off of furniture at home recently. Obtained an x-ray that did show a subacute fifth digit fracture on the right foot with minimal
displacement medially (2 mm). Patient stated that she did not want to stay in the hospital for orthopedics referral as she had an orthopedist that she saw her regularly. Advised her to limit weightbearing to the right foot and take Tylenol as
needed for pain. Advised her to schedule follow-up with her orthopedist within the next week as well as her PCP.
Discharge Plan
-
Patient Disposition: Home (Routine Discharge)
Discharge Diagnosis/Procedures: Acute kidney injury
Chronic diarrhea
Celiac's disease
Iatrogenic hyperthyroidism
Nausea and vomiting, [employer]
Subacute fracture of the right foot fifth digit
Condition: Fair
Additional Diets: Gluten-free, >64 ounce water daily
Activity: As tolerated
Driving Restrictions: Not until seen by your Dr
Bathing Restrictions: None
Blood Work: BMP in 1 week to recheck kidney function
Repeat TSH with reflex T4 in 4 to 6 weeks, to be ordered by your family doctor
Activity Restrictions/Additional Instructions:
Schedule a follow-up appointment with your family physician, should be seen in the office within 1 to 2 weeks of discharge from the hospital
You have an appointment with Dr. Alfaro from gastroenterology at 4 PM on 09/08/2024
Schedule follow-up appointment with your orthopedist for your subacute fracture of the fifth digit on the right foot.
Instructions: Diarrhea in adults - ED discharge instructions
Referrals:
Braeden Moore MD [Family Provider] -
Oksana Alfaro MD [Active] - 09/08/24 4:00 pm (Please arrive 15 minutes prior. )
Additional Discharge Medication Instructions: Reduced levothyroxine to 125 mcg daily
Increase sodium bicarbonate to 1300 mg daily
Take loperamide 2 mg every 4 hours to help reduce diarrhea, at least until seen by gastroenterology on Saturday
Use Zofran as needed, up to 3 times in a day, for nausea
Use [id number] Tylenol 975 mg 3 times daily as needed for foot pain
Prescriptions:
New
loperamide 2 mg Capsule
2 mg PO Q4 7 Days Qty: 42 0RF
levothyroxine 125 mcg Tablet
125 mcg PO DAILY @ 0600 30 Days Qty: 30 0RF
sodium bicarbonate 650 mg Tablet
1,300 mg PO DAILY 30 Days Qty: 60 0RF
ondansetron HCl 4 mg tablet
4 mg PO TID PRN (Reason: nausea and vomiting) 5 Days Qty: 15 0RF
Continued
ergocalciferol (vitamin D2) [Vitamin D2] 1,250 mcg (50,000 unit) Capsule
1,250 mcg PO FR
diphenhydramine HCl [Sleep Aid (diphenhydramine)] 50 mg Capsule
50 mg PO HSPRN PRN (Reason: sleep)
metoprolol succinate 50 mg Tablet Extended Release 24 Hr
50 mg PO DAILY
acetaminophen [Tylenol Extra Strength] 500 mg Tablet
500 mg PO BIDPRN MDD 1000mg PRN (Reason: mild pain)
Discontinued
levothyroxine 175 MCG tablet
175 mcg PO DAILY
Discharge Orders:
Discharge Patient (As Directed); Ordered 09/06/24
Ordered By: Lencho Elizabeth
Discharge Date and Time
Discharge Date/Time: 09/06/24 15:57
Print Language: TAMAZIGHT
[2024-09-06 23:40] LABS: IgA 268 mg/dl (70-400)
[2024-09-07 07:40] LABS: tTG IgA Antibody 169.44 FLU (0.00-4.99)
[2024-09-08 23:35] LABS: Fat, Fecal - Neutral Normal (Normal); Fat, Fecal - Split Normal (Normal)
== END 2024-09-06 15:57 | disposition home or self-care (01) | DRG 683 ==
LOC: 2 NORTH 19:27
PROVIDERS: Physician Assistant Medical; ADMITTING PHYSICIAN Hospitalist; ATTENDING PHYSICIAN Internal Medicine; EMERGENCY PHYSICIAN Emergency Medicine; FAMILY PHYSICIAN Internal Medicine
DX: N17.9 Acute kidney failure, unspecified (principal); E87.1 Hypo-osmolality and hyponatremia; K51.90 Ulcerative colitis, unspecified, without complications; E87.20 Acidosis, unspecified; I10 Essential (primary) hypertension; E03.9 Hypothyroidism, unspecified; Z66 Do not resuscitate; K90.0 Celiac disease; E05.80 Other thyrotoxicosis without thyrotoxic crisis or storm
CPT/HCPCS: 73620; 80048; 80053; 81003; 81015; 82653; 82705; 82784; 83516; 83690; 83993; 84443; 85025; 86231; 87045; 87046; 87077; 87086; 87186; 87324; 87328; 87329; 87427; 87449; 87798; 89055; 93005; 96360; 97165; 99285

== ENCOUNTER → 2024-11-02 10:50 | Outpatient (REF) | payer MEDICARE, SELFPAY | LOC: PAVMRI 10:50 | PROVIDERS: ATTENDING PHYSICIAN Internal Medicine Gastroenterology; FAMILY PHYSICIAN Internal Medicine | DX: K86.3 Pseudocyst of pancreas (principal) | CPT/HCPCS: 74183; A9575 ==

== ENCOUNTER 2025-04-27 13:01 | Emergency (ER) | payer MEDICARE, SELFPAY ==
[2025-04-27 13:03] VITALS: BP 161/86
[2025-04-27 14:54] VITALS: BMI 30.7
[2025-04-27 15:15] LABS: Hematocrit 35.0 % (37.0-47.0); Hemoglobin 11.8 g/dL (12.0-16.0); Mean Corp Hgb Conc. 33.7 g/dL (33.0-37.0); Mean Corpuscular Volume 97.2 fL (81.0-99.0); Nucleated Red Blood Cells % 0 %; Platelet Count 143 10^3/uL (130-400); Red Cell Dist. Width 13.3 % (11.5-14.5)
[2025-04-27 15:28] LABS: Blood Urea Nitrogen 22 mg/dl (7-17); Calcium 10.0 mg/dl (8.4-10.2); Carbon Dioxide 19 mmol/L (22-30); Chloride 110 mmol/L (98-107); Estimated Creatinine Clearance 30 ml/min; Glucose 103 mg/dl (70-99); Potassium 4.9 mmol/L (3.5-5.1); Sodium 133 mmol/L (135-145); eGFR 40.80
--- NOTE | 2025-04-27 15:35 | ED.GENMED ---
History of Present Illness
<Braeden Sheets PA-C - Last Filed: 04/27/25 18:46>
General
Chief Complaint: Skin Problem
Source: patient
Time Seen by Provider: 04/27/25 14:31
History of Present Illness
History of Present Illness:
84-year-old female with past medical history of hypertension, bilateral lower extremity lymphedema, mild chronic kidney disease presenting to the emergency department at the request of her primary care provider for evaluation of pain and swelling to
the left lower extremity with the patient stating she had significant pain last night to the left great toe, today the pain is slightly improved although there is still noted erythema and edema along the dorsum of the foot. Patient denies any focal
weakness or numbness, paresthesias, traumatic injuries, breaks in the skin, chest pain or shortness of breath, pleurisy or hemoptysis. Patient does not take any anticoagulant medication. Denies smoking history.
Past History
<Braeden Sheets PA-C - Last Filed: 04/27/25 18:46>
Past History
ED Past Medical History: HTN, Hypothyroidism, Other (Lymphedema) and Other (Anemia, irritable bowel, Perforated diverticulitis, ulcerative colitis, celiac disease, hidradenitis status post radiation therapy )
ED Past Surgical History: Appendectomy, Bowel resection, Cholecystectomy, Gynecological (Left falopian tube removed), Orthopedic (L hip replaced 05/11/24), Tonsilectomy and Other (Total Proctocolectomy with Ileostomy, numerous skin grafts)
Social History
Tobacco: Non-smoker
Alcohol: Daily (Adele 1-2 glasses)
Drug: None
Personal:
Living: with family
Employment: Not employed
Family History
Family History: Other (Noncontributory)
Review of Systems
<Braeden Sheets PA-C - Last Filed: 04/27/25 18:46>
Review of Systems
All Other Systems: ROS reviewed and negative except as documented in HPI and ROS
Phy Exam
<Braeden Sheets PA-C - Last Filed: 04/27/25 18:46>
Physical Exam
Physical Exam:
GENERAL: Alert , in no apparent distress
HEAD: Normocephalic atraumatic
EYE: conjunctiva clear
NECK: Supple
ENT: o/p clr, mmm.
CARDIAC: Regular rate and rhythm
LUNGS: Clear breath sounds bilaterally, no acute respiratory distress, no wheezes/rales/rhonchi
NEUROLOGICAL: Alert and oriented
SKIN: Warm and dry, the left lower extremity is erythematous, somewhat ruborous in appearance, there is a patch of ecchymosis along the proximal lateral portion of the tib-fib region but without tenderness (patient states that she gets this
intermittently and is not concerned about this area). Area of erythema over the dorsum of the foot with mild tenderness, slightly warm to the touch, blanching.
MUSCULOSKELETAL: Palpable pedal and tibial pulses bilaterally, confirmed with Doppler. Patient allows for full range of motion of the foot ankle and knee without any difficulty.
PSYCH: Normal and appropriate interaction.
Scores
<Braeden Sheets PA-C - Last Filed: 04/27/25 18:46>
Heart Failure Risk
Heart Failure Risk Score: Not Applicable
Heart Score for Chest Pain Patients
STEMI patient?: Not applicable
Withdrawal Assessment of Alcohol
Withdrawal Assessment Completed?: Not applicable
Course
<Braeden Sheets PA-C - Last Filed: 04/27/25 18:46>
Orders/Labs/Results
Orders:
Orders
04/27/25 14:31
Basic Metabolic Panel Urgent
Complete Blood Count/With Diff Urgent
NT-proBNP Urgent
US Periph Venous LOWER Ext LT Urgent
Comment:
Reason For Exam: edema
Abnormal Lab Results
04/27/25
14:31
RBC 3.60 L 10^6/uL
(4.20-5.40)
Hgb 11.8 L g/dL
(12.0-16.0)
Hct 35.0 L %
(37.0-47.0)
MCH 32.8 H pg
(27.0-31.0)
MPV 10.6 H fL
(7.4-10.4)
Absolute Lymphs (auto) 0.9 L 10^3/uL
(1.2-3.4)
Absolute Monos (auto) 0.7 H 10^3/uL
(0.1-0.6)
Lymphocytes % 16.1 L %
(20.5-51.1)
Monocytes % 12.7 H %
(1.7-9.3)
Sodium 133 L mmol/L
(135-145)
Chloride 110 H mmol/L
(98-107)
Carbon Dioxide 19 L mmol/L
(22-30)
BUN 22 H mg/dl
(7-17)
Creatinine 1.3 H mg/dL
(0.6-1.0)
Glucose 103 H mg/dl
(70-99)
04/27/25 14:31
04/27/25 14:31
Vital Signs
Initial and Last Documented VS:
Initial Vital Signs
Temp Pulse Resp BP Pulse Ox
98.6 F 79 16 161/86 98
04/27/25 13:03 04/27/25 13:03 04/27/25 13:03 04/27/25 13:03 04/27/25 13:03
Last Documented Vital Signs
Temp Pulse Resp BP Pulse Ox
98.6 F 79 16 161/86 98
04/27/25 13:03 04/27/25 13:03 04/27/25 13:03 04/27/25 13:03 04/27/25 15:37
<Melsisa Cuevas MD - Last Filed: 04/27/25 16:33>
Orders/Labs/Results
Orders:
Orders
04/27/25 14:31
Basic Metabolic Panel Urgent
Complete Blood Count/With Diff Urgent
NT-proBNP Urgent
US Periph Venous LOWER Ext LT Urgent
Comment:
Reason For Exam: edema
Abnormal Lab Results
04/27/25
14:31
RBC 3.60 L 10^6/uL
(4.20-5.40)
Hgb 11.8 L g/dL
(12.0-16.0)
Hct 35.0 L %
(37.0-47.0)
MCH 32.8 H pg
(27.0-31.0)
MPV 10.6 H fL
(7.4-10.4)
Absolute Lymphs (auto) 0.9 L 10^3/uL
(1.2-3.4)
Absolute Monos (auto) 0.7 H 10^3/uL
(0.1-0.6)
Lymphocytes % 16.1 L %
(20.5-51.1)
Monocytes % 12.7 H %
(1.7-9.3)
Sodium 133 L mmol/L
(135-145)
Chloride 110 H mmol/L
(98-107)
Carbon Dioxide 19 L mmol/L
(22-30)
BUN 22 H mg/dl
(7-17)
Creatinine 1.3 H mg/dL
(0.6-1.0)
Glucose 103 H mg/dl
(70-99)
04/27/25 14:31
04/27/25 14:31
Vital Signs
Initial and Last Documented VS:
Initial Vital Signs
Temp Pulse Resp BP Pulse Ox
98.6 F 79 16 161/86 98
04/27/25 13:03 04/27/25 13:03 04/27/25 13:03 04/27/25 13:03 04/27/25 13:03
Last Documented Vital Signs
Temp Pulse Resp BP Pulse Ox
98.6 F 79 16 161/86 98
04/27/25 13:03 04/27/25 13:03 04/27/25 13:03 04/27/25 13:03 04/27/25 15:37
<Braeden Sheets PA-C - Last Filed: 04/27/25 18:46>
MDM/Problems Addressed
Differential Diagnosis Includes:
Cellulitis
DVT
Arterial occlusion
Lymphedema
Venous stasis dermatitis
Venous stasis
Neuropathy
Venous insufficiency
Chronic kidney disease
MDM/Problems Addressed:
84-year-old female presenting to the ER for evaluation at the request of her primary care provider, concern for DVT to the left lower extremity. Patient with pain, swelling and erythema to the left foot since last night. Exam does reveal palpable
pulses so doubt arterial etiology. Will obtain an ultrasound to rule out DVT. Labs ordered. Question cellulitis versus venous stasis/dermatitis. Disposition pending
Chronic conditions affecting care: Other (Chronic lymphedema)
<Braeden Sheets PA-C - Last Filed: 04/27/25 18:46>
*Radiology
Radiology exam reviewed: radiology read reviewed
*Pulse Oximetry
SaO2: 98
Oxygen Mode of Delivery: Room air
Patient hypoxic: no
*Critical Care Note
Total Time (30-74mins, 75-104mins- exclusive of procedures): Not Applicable
Data Reviewed
Review of Other/Old Records Reveals: Labs and Records
<Braeden Sheets PA-C - Last Filed: 04/27/25 18:46>
Patient Management
Escalation/DeEscalation of care consider admission/obs:
Ultrasound is negative for DVT. Given questionable cellulitis will cover with Bactrim (unable to give Keflex due to listed allergy however this appears to be more of a adverse reaction/side effect as opposed to true allergy). Advised for patient
to follow-up closely with primary care provider. Aware of return precautions to the ER.
ED Attending Note
<Braeden Sheets PA-C - Last Filed: 04/27/25 18:46>
-
Portions of this chart may have been created with voice recognition software.� Occasional wrong word or��sound alike� substitutions may have occurred due to the inherent limitations of voice recognition software.
<Melissa Cuevas MD - Last Filed: 04/27/25 16:33>
ED Attending Note
Patient seen and examined by attending physician: Yes
I performed the substantive portion of visit, reviewed & personally made and approve the management plan that is documented in note by myself or BYRON.: Yes
ED Attending Note:
84-year-old female presents emergency department with complaints of left foot pain and swelling over the last day or so, no specific trauma or injury. No fevers or chills. On exam, there is swelling erythema, slight warmth, and slight tenderness
to palpation noted at the base of the great toe extending into the distal first metatarsal area. No fluctuance, crepitus, drainage. Pulses are normal. Differential includes cellulitis versus gout. Patient does not identify any contraindications
to nonsteroidals such as gastric/peptic ulcers, renal disease, etc. We will cover with antibiotics but also recommended the patient begin Motrin with food, discussed with her importance of close follow-up.
Discharge Plan
Departure
Patient Disposition: Home (Routine Discharge)
Date of Disposition: 04/27/25
Time of Disposition: 16:29
Patient with high blood pressure during this ER visit?: Yes
Discharge Problem:
Foot pain, left
Instructions: Cellulitis (Skin Infection), Adult (DC)
Prescriptions:
New
sulfamethoxazole-trimethoprim [Bactrim DS] 800-160 mg tablet
1 tab PO BID 10 Days Qty: 20 0RF
No Action
ergocalciferol (vitamin D2) [Vitamin D2] 1,250 mcg (50,000 unit) Capsule
1,250 mcg PO FR
diphenhydramine HCl [Sleep Aid (diphenhydramine)] 50 mg Capsule
50 mg PO HSPRN PRN (Reason: sleep)
metoprolol succinate 50 mg Tablet Extended Release 24 Hr
50 mg PO DAILY
acetaminophen [Tylenol Extra Strength] 500 mg Tablet
500 mg PO BIDPRN MDD 1000mg PRN (Reason: mild pain)
loperamide 2 mg Capsule
2 mg PO Q4 7 Days Qty: 42 0RF
levothyroxine 125 mcg Tablet
125 mcg PO DAILY @ 0600 30 Days Qty: 30 0RF
sodium bicarbonate 650 mg Tablet
1,300 mg PO DAILY 30 Days Qty: 60 0RF
ondansetron HCl 4 mg tablet
4 mg PO TID PRN (Reason: nausea and vomiting) 5 Days Qty: 15 0RF
Referrals:
Braeden Moore MD [Family Provider, Internal Medicine]
Interventions
Interventions:
*Risk Screen - Suicide Last Done: 04/27/25 13:05
*General Assessment Last Done: 04/27/25 14:54
*Neglect/Abuse Screening Last Done: 04/27/25 13:05
*ED- Fall Risk Assessment Last Done: 04/27/25 14:54
*ED COVID-19 Vaccine History Last Done: 04/27/25 14:54
*Nursing Disposition Last Done: 04/27/25 16:45
ED-Skin Assessment Last Done: 04/27/25 16:45
Discharge Date and Time
Discharge Date/Time: 04/27/25 16:47
Print Language: COLOMBIAN
== END 2025-04-27 16:47 | disposition home or self-care (01) ==
LOC: EMR 13:01
PROVIDERS: Physician Assistant Medical; EMERGENCY PHYSICIAN Emergency Medicine; FAMILY PHYSICIAN Internal Medicine
DX: M79.672 Pain in left foot (principal); I12.9 Hypertensive chronic kidney disease with stage 1 through stage 4 chronic kidney disease, or unspecified chronic kidney disease; N18.2 Chronic kidney disease, stage 2 (mild); I89.0 Lymphedema, not elsewhere classified; E03.9 Hypothyroidism, unspecified; K51.90 Ulcerative colitis, unspecified, without complications; K90.0 Celiac disease; K86.81 Exocrine pancreatic insufficiency; L73.2 Hidradenitis suppurativa; Z96.642 Presence of left artificial hip joint
CPT/HCPCS: 99284; 80048; 83880; 85025; 93971